=== PATIENT | male | born 1960 | race Caucasian/White ===

== ENCOUNTER 2019-12-13 16:24 | Emergency (ER) | payer MEDICARE ==
[2019-12-14 12:27] LABS: HEMATOCRIT 38 % (40-54); HEMOGLOBIN 12.8 G/DL (13.3-17.7); MEAN CORPUSCULAR HEMOGLOBIN 29 PG (25-34); MEAN CORPUSCULAR HGB CONC 33 G/DL (32-36); MEAN CORPUSCULAR VOLUME 87 FL (80-99); MEAN PLATELET VOLUME 8.8 FL (7.4-10.4); PLATELET COUNT 467 10^3/uL (130-400); RED CELL DISTRIBUTION WIDTH 12.8 % (10.0-14.5); WHITE BLOOD COUNT 11.8 10^3/uL (4.3-11.0)
[2019-12-14 12:28] LABS: BASOPHILS % (AUTO) 0 % (0-10); EOSINOPHILS % (AUTO) 1 % (0-10); LYMPHOCYTES # (AUTO) 1.9 X 10^3 (1.0-4.0); LYMPHOCYTES % (AUTO) 16 % (12-44); MONOCYTES # (AUTO) 0.9 X 10^3 (0.0-1.0); MONOCYTES % (AUTO) 8 % (0-12); NEUTROPHILS # (AUTO) 8.8 X 10^3 (1.8-7.8); NEUTROPHILS % (AUTO) 74 % (42-75)
[2019-12-14 12:29] LABS: BUN/CREATININE RATIO 13; CALCIUM 9.3 MG/DL (8.5-10.1); CARBON DIOXIDE 25 MMOL/L (21-32); CHLORIDE 100 MMOL/L (98-107); CREATININE SERUM 0.64 MG/DL (0.60-1.30); EOSINOPHILS # (AUTO) 0.2 10^3/uL (0.0-0.3); GFR ESTIMATED > 60; GLUCOSE 110 MG/DL (70-105); POTASSIUM 4.3 MMOL/L (3.6-5.0); SODIUM 137 MMOL/L (135-145)
== END 2019-12-13 17:30 | disposition home or self-care (01) ==
LOC: ER FS 16:25
DX: L03.115 Cellulitis of right lower limb (principal); I89.0 Lymphedema, not elsewhere classified
CPT/HCPCS: 36415; 80048; 85025

== ENCOUNTER 2021-08-19 17:43 | Emergency (ER) | payer MEDICARE ==
[~2021-08-19] VITALS: Ht 175 cm; Wt 171.0 kg
[2021-08-19 17:56] LABS: BASOPHILS # (AUTO) 0.1 10^3/uL (0.0-0.1); BASOPHILS % (AUTO) 1 % (0-10); EOSINOPHILS # (AUTO) 0.1 10^3/uL (0.0-0.3); EOSINOPHILS % (AUTO) 1 % (0-10); HEMATOCRIT 43 % (40-54); HEMOGLOBIN 13.9 g/dL (13.3-17.7); LYMPHOCYTES # (AUTO) 1.6 10^3/uL (1.0-4.0); LYMPHOCYTES % (AUTO) 19 % (12-44); MEAN CORPUSCULAR HEMOGLOBIN 29 pg (25-34); MEAN CORPUSCULAR HGB CONC 33 g/dL (32-36); MEAN CORPUSCULAR VOLUME 89 fL (80-99); MEAN PLATELET VOLUME 9.6 fL (9.0-12.2); MONOCYTES # (AUTO) 0.7 10^3/uL (0.0-1.0); MONOCYTES % (AUTO) 8 % (0-12); NEUTROPHILS # (AUTO) 5.9 10^3/uL (1.8-7.8); NEUTROPHILS % (AUTO) 71 % (42-75); PLATELET COUNT 257 10^3/uL (130-400); WHITE BLOOD COUNT 8.3 10^3/uL (4.3-11.0)
[2021-08-19 18:06] LABS: INR 1.1 (0.8-1.4); PROTHROMBIN TIME PATIENT 14.8 SEC (12.2-14.7)
--- NOTE | 2021-08-19 18:11 | Diagnostic Imaging Report ---
INDICATION: Shortness of breath. TIME OF EXAM: 5:57 p.m. COMPARISON: No prior studies are available for comparison. FINDINGS: Heart is enlarged. There is some infiltrate or atelectasis in the right base. Otherwise, the lungs are clear. No effusion or pneumothorax is seen. IMPRESSION: Cardiomegaly with right basilar infiltrate or atelectasis. Dictated by: Dictated on workstation # [id number]
[2021-08-19 18:16] LABS: BILIRUBIN,TOTAL 1.1 MG/DL (0.1-1.0); CALCIUM 9.1 MG/DL (8.5-10.1); CREATININE SERUM 0.75 MG/DL (0.60-1.30)
[2021-08-19 18:17] LABS: ALBUMIN 3.5 GM/DL (3.2-4.5); TOTAL PROTEIN 6.2 GM/DL (6.4-8.2)
[2021-08-19] MEDS ORDERED: ASPIRIN 81 MG CHEW (CHILDREN'S ASA) PO ONE (18:30)
[2021-08-19] MEDS ORDERED: FUROSEMIDE 40 MG/4 ML INJ (LASIX) IVP ONE (18:30)
[2021-08-19] MEDS ORDERED: DOXYCYCLINE 100 MG (VIBRAMYCIN) TABLET PO STA (19:07)
--- NOTE | 2021-08-19 19:11 | ED Respiratory ---
General Chief Complaint: Respiratory Problems Stated Complaint: SOB Nursing Triage Note: PT RAN OUT OF HIS LASIX OVER 2 WEEKS AGO AND HAS INCREASED SOB AND IS UNABLE TO LAY FLAT. Source: patient Exam Limitations: no limitations History of Present Illness Date Seen by Provider: Aug 19, 2021 Time Seen by Provider: 17:45 Initial Comments 61-year-old male with past medical history of heart failure coming in due to increasing shortness of breath and difficulty laying flat. He ran out of his Lasix over 2 weeks ago because he does not have any money to fill the prescr iption. There is a prescription waiting at [facility] he says. Has had a mild nonproductive cough. No fever or significant chest pain. Otherwise denying any other acute complaints. He is gained roughly 10 pounds Allergies and Home Medications Allergies Coded Allergies: No Known Drug Allergies (Unverified , 08/19/21) Patient Home Medication List Home Medication List Reviewed: Yes Review of Systems Review of Systems Constitutional: No chills, No fever EENTM: No blurred vision Respiratory: orthopnea, short of breath Cardiovascular: no symptoms reported Gastrointestinal: no symptoms reported Genitourinary: no symptoms reported Musculoskeletal: no symptoms reported Skin: no symptoms reported Psychiatric/Neurological: No Symptoms Reported Hematologic/Lymphatic: No Symptoms Reported Immunological/Allergic: no symptoms reported All Other Systems Reviewed Negative Unless Noted: Yes Past Meamdnp-Mhxynu-Dlaloo Hx Patient Social History Tobacco Use?: Yes Tobacco type used: Cigarettes Smoking Status: Former Smoker Substance use?: No Alcohol Use?: No Pt feels they are or have been: No Immunizations Up To Date First/Initial COVID19 Vaccinat: 2020 Second COVID19 Vaccination Franky: 2020 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 oz. kg; 55.00 BMI Method: General Appearance: WD/WN, no apparent distress Eyes: Bilateral Eye Normal Inspection HEENT: PERRL/EOMI, normal ENT inspection, pharynx normal Neck: non-tender, full range of motion, supple, normal inspection Respiratory: chest non-tender, no respiratory distress, no accessory muscle use, crackles Cardiovascular: regular rate, rhythm, no murmur Gastrointestinal: normal bowel sounds, non tender, soft; No distended, No guarding, No rebound Extremities: normal range of motion, non-tender, normal inspection, no pedal edema, no calf tenderness, normal capillary refill, pedal edema Neurologic/Psychiatric: no motor/sensory deficits, alert, normal mood/affect Skin: normal color, warm/dry Lymphatic: no adenopathy Progress/Results/Core Measures Suspected Sepsis SIRS Temperature: Pulse: Respiratory Rate: Laboratory Tests 08/19/21 17:50: White Blood Count 8.3 Blood Pressure / Mean: Laboratory Tests 08/19/21 17:50: Creatinine 0.75, INR Comment 1.1, Platelet Count 257, Total Bilirubin 1.1H Results/Orders Lab Results Laboratory Tests Test 08/19/21 17:50 Range/Units White Blood Count 8.3 4.3-11.0 10^3/uL Red Blood Count 4.80 4.30-5.52 10^6/uL Hemoglobin 13.9 13.3-17.7 g/dL Hematocrit 43 40-54 % Mean Corpuscular Volume 89 80-99 fL Mean Corpuscular Hemoglobin 29 25-34 pg Mean Corpuscular Hemoglobin Concent 33 32-36 g/dL Red Cell Distribution Width 15.3 H 10.0-14.5 % Platelet Count 257 130-400 10^3/uL Mean Platelet Volume 9.6 9.0-12.2 fL Immature Granulocyte % (Auto) 0 % Neutrophils (%) (Auto) 71 42-75 % Lymphocytes (%) (Auto) 19 12-44 % Monocytes (%) (Auto) 8 0-12 % Eosinophils (%) (Auto) 1 0-10 % Basophils (%) (Auto) 1 0-10 % Neutrophils # (Auto) 5.9 1.8-7.8 10^3/uL Lymphocytes # (Auto) 1.6 1.0-4.0 10^3/uL Monocytes # (Auto) 0.7 0.0-1.0 10^3/uL Eosinophils # (Auto) 0.1 0.0-0.3 10^3/uL Basophils # (Auto) 0.1 0.0-0.1 10^3/uL Immature Granulocyte # (Auto) 0.0 0.0-0.1 10^3/uL Prothrombin Time 14.8 H 12.2-14.7 SEC INR Comment 1.1 0.8-1.4 Activated Partial Thromboplast Time 43 H 24-35 SEC Sodium Level 141 135-145 MMOL/L Potassium Level 4.0 3.6-5.0 MMOL/L Chloride Level 106 98-107 MMOL/L Carbon Dioxide Level 24 21-32 MMOL/L Anion Gap 11 5-14 MMOL/L Blood Urea Nitrogen 15 7-18 MG/DL Creatinine 0.75 0.60-1.30 MG/DL Estimat Glomerular Filtration Rate 101 BUN/Creatinine Ratio 20 Glucose Level 107 H 70-105 MG/DL Calcium Level 9.1 8.5-10.1 MG/DL Corrected Calcium 9.5 8.5-10.1 MG/DL Magnesium Level 2.0 1.6-2.4 MG/DL Total Bilirubin 1.1 H 0.1-1.0 MG/DL Aspartate Amino Transf (AST/SGOT) 20 5-34 U/L Alanine Aminotransferase (ALT/SGPT) 25 0-55 U/L Alkaline Phosphatase 107 40-136 U/L Troponin I < 0.30 <0.30 NG/ML Pro-B-Type Natriuretic Peptide 2858.0 H <75.0 PG/ML Total Protein 6.2 L 6.4-8.2 GM/DL Albumin 3.5 3.2-4.5 GM/DL My Orders Orders - JUSTICE QUINTANILLA MD Cbc With Automated Diff (08/19/21 17:46) Magnesium (08/19/21 17:46) Chest 1 View Ap/Pa Only (08/19/21 17:46) Ekg Tracing (08/19/21 17:46) Comprehensive Metabolic Panel (08/19/21 17:46) Protime With Inr (08/19/21 17:46) Partial Thromboplastin Time (08/19/21 17:46) O2 (08/19/21 17:46) Monitor-Rhythm Ecg Trace Only (08/19/21 17:46) Ed Iv/Invasive Line Start (08/19/21 17:46) Troponin I Fs (08/19/21 17:46) Probnp Fs (08/19/21 17:46) Furosemide Injection (Lasix Injection) (08/19/21 18:30) Aspirin Chewable Tablet (Baby Aspirin Ch (08/19/21 18:30) Doxycycline Hyclate Tablet (Vibramycin T (08/19/21 19:07) Medications Given in ED Current Medications Medications Dose Ordered Sig/Nia Route Start Time Stop Time Status Last Admin Dose Admin Aspirin 324 mg ONCE ONCE PO 08/19/21 18:30 08/19/21 18:31 DC 08/19/21 18:29 324 MG Furosemide 100 mg ONCE ONCE IVP 08/19/21 18:30 08/19/21 18:31 DC 08/19/21 18:29 100 MG Vital Signs/I&O Capillary Refill : Progress Note : Progress Note 61-year-old male with above history coming in due to weight gain and increasing shortness of breath in the setting of known heart failure and not taking his Lasix for 2 weeks. ABCs were intact and vitals were stable on presentation. Physical exam with what appears to be a volume overloaded male with crackles in his lung exam and lower extremity edema. He was given 100 mg of IV Lasix with good response and significant improvement in his symptoms. Chest x-ray with p ulmonary edema and possible right lower lobe infiltrate. Given doxycycline as well and full dose aspirin. BNP elevated but troponin is normal. Labs otherwise unremarkable. The patient feels well and wants to go home. I believe he stable for discharge with outpatient follow-up. He was sent home with strict return precautions. He says he has money tomorrow to fill the prescriptions. ECG Initial ECG Impression Date: Aug 19, 2021 Initial ECG Impression Time: 17:50 Initial ECG Rate: 92 Initial ECG Rhythm: Normal Sinus Comment Narrow QRS, left axis deviation, no significant ST changes, T wave flattening in the high lateral leads Diagnostic Imaging Diagonstic Imaging: Xray (chest) Comments [facility], [place] NAME: NARCISA LOCO [facility] REC#: [id number] PT STATUS: REG ER : 1960 PHYSICIAN: JUSTICE QUINTANILLA MD ADMIT DATE: 08/19/21/ER FS Signed Date of Exam:08/19/21 CHEST 1 VIEW AP/PA ONLY INDICATION: Shortness of breath. TIME OF EXAM: 5:57 p.m. COMPARISON: No prior studies are available for comparison. FINDINGS: Heart is enlarged. There is some infiltrate or atelectasis in the right base. Otherwise, the lungs are clear. No effusion or pneumothorax is seen. IMPRESSION: Cardiomegaly with right basilar infiltrate or atelectasis. Dictated by: Dictated on workstation # [id number] Dict: 08/19/[id number] Trans: 08/19/211836 [id number] Interpreted by: THONG PARISH MD Electronically signed by: THONG PARISH MD 08/19/211836 Departure Impression Primary Impression: Volume overload Qualified Codes: E87.70 - Fluid overload, unspecified Additional Impression: Pneumonia Qualified Codes: J18.9 - Pneumonia, unspecified organism Disposition: HOME, SELF-CARE Condition: Improved Departure-Patient Inst. Decision time for Depature: 19:16 Referrals: RUDI SHEEHAN MD (PCP/Family) Primary Care Physician Patient Instructions: Heart Failure ED, Pneumonia, Adult ED Add. Discharge Instructions: You do have too much fluid on your lungs and potentially developing pneumonia on the right lower part of your lung. We will start you on an antibiotic for the next week. 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 I do want you to schedule an appointment with your cardi ologist within the next couple weeks. Scripts Doxycycline Hyclate (Doxycycline Hyclate) 100 Mg Tablet 100 MG PO BID for 7 Days, #14 TAB Prov: JUSTICE QUINTANILLA MD 08/19/21 Work/School Note: Work Release Form Date Seen in the Emergency Department: Aug 19, 2021 Return to Work: Aug 21, 2021 Restrictions: No Restrictions JUSTICE QUINTANILLA MD Aug 19, 2021 19:11
[2021-08-19] MEDS ORDERED: DOXY100T2 PO (19:17)
[2021-08-19 19:20] VITALS: BP 193/114
== END 2021-08-19 19:20 | disposition home or self-care (01) ==
LOC: EDUNIT# 17:43 → ER FS 17:44
DX: E87.70 Fluid overload, unspecified (principal); J18.9 Pneumonia, unspecified organism; Z87.891 Personal history of nicotine dependence
CPT/HCPCS: 36415; 71045; 80053; 83735; 83880; 84484; 85025; 85610; 85730; 93005; 93041

== ENCOUNTER 2021-11-08 17:14 | Inpatient (IN) | payer MEDICARE ==
[~2021-11-08] VITALS: Ht 175.3 cm; Wt 157.2 kg
[~2021-11-08 17:14] MED LIST: DOXY100T2 PO; RT-ALBUTEROL/IPRATROPIUM 3 ML (DUONEB) VIAL INH PRN
[2021-11-08] MEDS ORDERED: FUROSEMIDE 40 MG/4 ML INJ (LASIX) IVP ONE (17:30)
[2021-11-08] MEDS ORDERED: ASPIRIN 81 MG CHEW (CHILDREN'S ASA) PO ONE (17:30)
[2021-11-08 17:31] LABS: BASOPHILS % (AUTO) 0 % (0-10); EOSINOPHILS % (AUTO) 0 % (0-10); HEMATOCRIT 43 % (40-54); HEMOGLOBIN 14.1 g/dL (13.3-17.7); LYMPHOCYTES # (AUTO) 1.4 10^3/uL (1.0-4.0); LYMPHOCYTES % (AUTO) 18 % (12-44); MEAN CORPUSCULAR HEMOGLOBIN 30 pg (25-34); MEAN CORPUSCULAR HGB CONC 33 g/dL (32-36); MEAN CORPUSCULAR VOLUME 91 fL (80-99); MEAN PLATELET VOLUME 9.5 fL (9.0-12.2); MONOCYTES # (AUTO) 0.4 10^3/uL (0.0-1.0); MONOCYTES % (AUTO) 5 % (0-12); NEUTROPHILS % (AUTO) 76 % (42-75); PLATELET COUNT 283 10^3/uL (130-400); WHITE BLOOD COUNT 7.9 10^3/uL (4.3-11.0)
--- NOTE | 2021-11-08 17:33 | ED Cardiac General ---
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 He says over the past 6 months he went from being less than 300 pounds to over 350 pounds. Last month he was around 360 pounds which was his all-time high. His primary care physician increase his Lasix from 40 mg to 80 mg p.o. daily and he lost 10 pounds, he says this week he weighed in around 350 pounds. He says he has had decreased effectiveness, he is not urinating as much as he should be with it, and feels like he is gaining more water weight again. He feels short of breath, is unable to lay flat at all. Denies any chest pain, does not have any stents in his heart and never has had any type of cardiac surgery. Denies any history of blood clots in his legs or lungs, no recent surgery, no hemoptysis, no asymmetric leg swelling or redness with pain. Does not take any blood thinners. He is otherwise denying any other acute complaints Allergies and Home Medications Allergies Coded Allergies: No Known Drug Allergies (Unverified , 08/19/21) Patient Home Medication List Home Medication List Reviewed: Yes Doxycycline Hyclate (Doxycycline Hyclate) 100 Mg Tablet, 100 MG PO BID Prescribed by: JUSTICE QUINTANILLA on 08/19/211916 Review of Systems Review of Systems Constitutional: No fever EENTM: No Blurred Vision Respiratory: Cough, Shortness of Air Cardiovascular: Denies Chest Pain Gastrointestinal: Abdominal Pain; Denies Diarrhea; Nausea, Vomiting Genitourinary: No Symptoms Reported Musculoskeletal: no symptoms reported Skin: no symptoms reported Psychiatric/Neurological: No Symptoms Reported Endocrine: No Symptoms Reported Hematologic/Lymphatic: No Symptoms Reported All Other Systems Reviewed Negative Unless Noted: Yes Past Qygvvxb-Xomagc-Vcvenk Hx Patient Social History Tobacco Use?: No Smoking Status: Never a Smoker Smokeless Tobacco Frequency: Never a User Use of E-Cig and/or Vaping dev: No Use of E-Cig and/or Vaping Yossi: Never a User Substance use?: No Alcohol Use?: No Pt feels they are or have been: No Immunizations Up To Date First/Initial COVID19 Vaccinat: 2020 Second COVID19 Vaccination Franky: 2020 COVID19 Vaccine Director Telehealth: [facility] Past Medical History Surgery/Hospitalization HX: CHF, COPD Surgeries: Yes (circumcision) Physical Exam Vital Signs Vital Signs - First Documented 11/08/21 17:14 Temp 35.8 Pulse 102 Resp 16 B/P (MAP) 132/85 (101) O2 Delivery Room Air Capillary Refill : Height, Weight, BMI Height: '" Weight: lbs. oz. kg; 55.00 BMI Method: General Appearance: No Apparent Distress, Obese HEENT: PERRL/EOMI, Normal ENT Inspection, Pharynx Normal Neck: Full Range of Motion, Normal Inspection, Non Tender, Supple Respiratory: Chest Non Tender, No Accessory Muscle Use, No Respiratory Distress, Crackles Cardiovascular: Regular Rate, Rhythm, Normal Peripheral Pulses, Other (lower extremity edema) Gastrointestinal: Normal Bowel Sounds, Soft, Tenderness, Other (anasarca) Extremity: Normal Capillary Refill, Normal Range of Motion, Non Tender, No Calf Tenderness, Pedal Edema Neurologic/Psychiatric: Alert, No Motor/Sensory Deficits, Normal Mood/Affect Skin: Normal Color, Warm/Dry Lymphatic: No Adenopathy Progress/Results/Core Measures Results/Orders Lab Results Laboratory Tests Test 11/08/21 17:28 Range/Units White Blood Count 7.9 4.3-11.0 10^3/uL Red Blood Count 4.76 4.30-5.52 10^6/uL Hemoglobin 14.1 13.3-17.7 g/dL Hematocrit 43 40-54 % Mean Corpuscular Volume 91 80-99 fL Mean Corpuscular Hemoglobin 30 25-34 pg Mean Corpuscular Hemoglobin Concent 33 32-36 g/dL Red Cell Distribution Width 17.7 H 10.0-14.5 % Platelet Count 283 130-400 10^3/uL Mean Platelet Volume 9.5 9.0-12.2 fL Immature Granulocyte % (Auto) 0 % Neutrophils (%) (Auto) 76 H 42-75 % Lymphocytes (%) (Auto) 18 12-44 % Monocytes (%) (Auto) 5 0-12 % Eosinophils (%) (Auto) 0 0-10 % Basophils (%) (Auto) 0 0-10 % Neutrophils # (Auto) 6.0 1.8-7.8 10^3/uL Lymphocytes # (Auto) 1.4 1.0-4.0 10^3/uL Monocytes # (Auto) 0.4 0.0-1.0 10^3/uL Eosinophils # (Auto) 0.0 0.0-0.3 10^3/uL Basophils # (Auto) 0.0 0.0-0.1 10^3/uL Immature Granulocyte # (Auto) 0.0 0.0-0.1 10^3/uL Prothrombin Time 17.1 H 12.2-14.7 SEC INR Comment 1.4 0.8-1.4 Activated Partial Thromboplast Time 35 24-35 SEC Sodium Level 139 135-145 MMOL/L Potassium Level 3.5 L 3.6-5.0 MMOL/L Chloride Level 100 98-107 MMOL/L Carbon Dioxide Level 26 21-32 MMOL/L Anion Gap 13 5-14 MMOL/L Blood Urea Nitrogen 28 H 7-18 MG/DL Creatinine 1.22 0.60-1.30 MG/DL Estimat Glomerular Filtration Rate 67 BUN/Creatinine Ratio 23 Glucose Level 157 H 70-105 MG/DL Calcium Level 8.6 8.5-10.1 MG/DL Corrected Calcium 9.2 8.5-10.1 MG/DL Magnesium Level 1.6 1.6-2.4 MG/DL Total Bilirubin 2.1 H 0.1-1.0 MG/DL Aspartate Amino Transf (AST/SGOT) 54 H 5-34 U/L Alanine Aminotransferase (ALT/SGPT) 68 H 0-55 U/L Alkaline Phosphatase 276 H 40-136 U/L Troponin I < 0.30 <0.30 NG/ML Pro-B-Type Natriuretic Peptide 5700.0 H <125.0 PG/ML Total Protein 6.2 L 6.4-8.2 GM/DL Albumin 3.3 3.2-4.5 GM/DL My Orders Orders - JUSTICE QUINTANILLA MD Cbc With Automated Diff (11/08/21 17:25) Magnesium (11/08/21 17:25) Ekg Tracing (11/08/21 17:25) Comprehensive Metabolic Panel (11/08/21 17:25) Protime With Inr (11/08/21 17:25) Partial Thromboplastin Time (11/08/21 17:25) O2 (11/08/21 17:25) Monitor-Rhythm Ecg Trace Only (11/08/21 17:25) Aspirin Chewable Tablet (Baby Aspirin Ch (11/08/21 17:30) Ed Iv/Invasive Line Start (11/08/21 17:25) Troponin I Fs (11/08/21 17:25) Probnp Fs (11/08/21 17:25) Ct Abd/Pelv W (Appendicitis) (11/08/21 17:25) Chest Pa/Lat (2 View) (11/08/21 17:25) Furosemide Injection (Lasix Injection) (11/08/21 17:30) Iohexol Injection (Omnipaque 300 Mg/Ml 1 (11/08/21 18:00) Sodium Chloride Flush (Catheter Flush Sy (11/08/21 18:00) Ns (Ivpb) (Sodium Chloride 0.9% Ivpb Bag (11/08/21 18:00) Received Contrast (Hold Metformin- Contr (11/08/21 18:00) Potassium Chloride (Tablet) (K Dur Table (11/08/21 18:45) Medications Given in ED Current Medications Medications Dose Ordered Sig/Nia Route Start Time Stop Time Status Last Admin Dose Admin Aspirin 243 mg ONCE ONCE PO 11/08/21 17:30 11/08/21 17:31 DC 11/08/21 18:21 243 MG Furosemide 80 mg ONCE ONCE IVP 11/08/21 17:30 11/08/21 17:31 DC 11/08/21 18:21 80 MG Iohexol 125 ml ONCE ONCE IV 11/08/21 18:00 11/08/21 18:01 DC 11/08/21 18:10 125 ML Sodium Chloride 10 ml NEEDED PRN IV 11/08/21 18:00 11/08/21 18:10 10 ML Sodium Chloride 100 ml ONCE ONCE IV 11/08/21 18:00 11/08/21 18:01 DC 11/08/21 18:10 100 ML Vital Signs/I&O 11/08/21 17:14 Temp 35.8 Pulse 102 Resp 16 B/P (MAP) 132/85 (101) O2 Delivery Room Air Progress Progress Note : Progress Note 61-year-old male with above history coming in due to shortness of breath, weight gain, and feeling like his Lasix is not responding as much as it has been. ABCs were intact and vitals were stable on presentation other than he was tachycardic the rate of 120. An IV was placed and he was given 80 mg of Lasix as well as 40 mg of p.o. potassium. Physical exam with crackles and silvana anasarca. Chest x- ray with no significant abnormality. CT abdomen and pelvis with anasarca. Given the patient's symptoms, I am concerned he is very volume overloaded with silvana anasarca and will need IV Lasix. I contacted Dr. Pang who admit the patient under inpatient status to the stepdown unit. I then contacted Dr. Arango in consultation. The patient is adamant that he goes private vehicle. He says if he goes via ambulance we will have to sedate him. Although this is not the most ideal situation, I think it is in his best interest whenever we will get him to the hospital. Initial ECG Impression Date: Nov 08, 2021 Initial ECG Impression Time: 18:26 Initial ECG Rate: 122 Initial ECG Rhythm: S.Tach Comment Narrow QRS, left axis deviation, no significant ST changes or T wave abnormalities, there is significant artifact making it difficult to fully interpret Diagnostic Imaging Diagonstic Imaging: Xray, CT (abd/pelv) Plain Films/CT/US/NM/MRI: chest Comments [facility], [place] NAME: NARCISA LOCO [facility] REC#: [id number] PT STATUS: REG ER : 1960 PHYSICIAN: JUSTICE QUINTANILLA MD ADMIT DATE: 11/08/21/ER FS Signed Date of Exam:11/08/21 CHEST PA/LAT (2 VIEW) EXAMINATION: Chest 2 view. HISTORY: Shortness of breath. Weight gain. History of heart failure. COMPARISON: 08/19/2021. FINDINGS: The lung volumes are hyperinflated. No focal consolidation is seen. No large pleural effusion or pneumothorax is seen. The cardiomediastinal silhouette is enlarged. No acute osseous abnormality is seen. IMPRESSION: 1. Cardiomegaly. No overt pulmonary edema. 2. Hyperinflated lung volumes, which can be seen with COPD. Dictated by: Dictated on workstation # [id number] Dict: 11/08/211742 Trans: 11/08/211746 [facility] [id number] Interpreted by: KENDY SOLIZ DO Electronically signed by: KENDY SOLIZ DO 11/08/211746 NAME: NARCISA LOCO [facility] REC#: [id number] PT STATUS: REG ER : 1960 PHYSICIAN: JUSTICE QUINTANILLA MD ADMIT DATE: 11/08/21/ER FS Draft Date of Exam:11/08/21 CT ABD/PELV W (APPENDICITIS) EXAMINATION: CT abdomen and pelvis with intravenous contrast. TECHNIQUE: Multiple contiguous axial images were obtained through the abdomen and pelvis after the uneventful administration of intravenous contrast. All CT scans use one or more of the following dose optimizing techniques: automated exposure control, MA and/or KvP adjustment based on patient size and exam type or iterative reconstruction. HISTORY: Mid abdominal pain. Vomiting. Fluid overload. COMPARISON: None available. FINDINGS: The heart is enlarged. Small right-sided pleural effusion is seen with right basilar atelectasis. There is hepatic steatosis. The liver has a micronodular contour. No focal hepatic lesion is seen. The gallbladder is nondistended with gallbladder wall thickening. There is a small amount of free fluid in the abdomen and pelvis. The spleen, pancreas, adrenal glands, and kidneys have a normal appearance. There is no pathologically enlarged mesenteric or retroperitoneal adenopathy. The bowel loops are nondilated. The appendix is visualized in the right lower quadrant and has a normal appearance. There is no free air. No acute osseous abnormalities. There is calcified aortic and iliac atherosclerotic plaque with mild aneurysmal dilation of the infrarenal abdominal aorta measuring 3.2 cm in max diameter. There is also aneurysmal dilation of the right common iliac artery measuring 2.1 cm. Ureters and bladder are grossly normal. Anasarca is noted. There is no free air, loculated collection or adenopathy in the pelvis. IMPRESSION: 1. Hepatic steatosis with possible underlying cirrhosis. Small volume of ascites is seen in the abdomen and pelvis. 2. Aneurysmal dilation of the infrarenal abdominal aorta and common iliac artery. 3. Cardiomegaly with small right-sided pleural effusion and right basilar atelectasis. 4. Anasarca. Dictated on workstation # [id number] Dict: 11/08/211815 Trans: 11/08/211821 [facility] [id number] Interpreted by: KENDY SOLIZ DO Electronically signed by: Departure Impression Primary Impression: Anasarca Additional Impressions: CHF exacerbation Qualified Codes: I50.23 - Acute on chronic systolic (congestive) heart failure Orthopnea Disposition: 30 STILL A PATIENT Condition: Stable Admissions Decision to Admit Reason: Admit from ER (General) Decision to Admit/Date: Nov 08, 2021 Time/Decision to Admit Time: 18:40 Transfer Method of Transfer: Private Vehicle Departure-Patient Inst. Referrals: RUDI SHEEHAN MD (PCP/Family) Primary Care Physician JUSTICE QUINTANILLA MD Nov 08, 2021 17:33
[2021-11-08 17:38] LABS: INR 1.4 (0.8-1.4); PROTHROMBIN TIME PATIENT 17.1 SEC (12.2-14.7)
--- NOTE | 2021-11-08 17:46 | Diagnostic Imaging Report ---
EXAMINATION: Chest 2 view. HISTORY: Shortness of breath. Weight gain. History of heart failure. COMPARISON: 08/19/2021. FINDINGS: The lung volumes are hyperinflated. No focal consolidation is seen. No large pleural effusion or pneumothorax is seen. The cardiomediastinal silhouette is enlarged. No acute osseous abnormality is seen. IMPRESSION: 1. Cardiomegaly. No overt pulmonary edema. 2. Hyperinflated lung volumes, which can be seen with COPD. Dictated by: Dictated on workstation # [id number]
[2021-11-08 17:50] LABS: ALBUMIN 3.3 GM/DL (3.2-4.5); BILIRUBIN,TOTAL 2.1 MG/DL (0.1-1.0); CALCIUM 8.6 MG/DL (8.5-10.1); CREATININE SERUM 1.22 MG/DL (0.60-1.30); MAGNESIUM 1.6 MG/DL (1.6-2.4); POTASSIUM 3.5 MMOL/L (3.6-5.0); TOTAL PROTEIN 6.2 GM/DL (6.4-8.2)
[2021-11-08] MEDS ORDERED: IOHEXOL 300 MG/ML 100 ML (OMNIPAQUE 300) VIAL IV ONE (18:00)
[2021-11-08] MEDS ORDERED: CATHETER FLUSH 10 ML SYR IV PRN (18:00)
[2021-11-08] MEDS ORDERED: HOLD METFORMIN - RECEIVED CONTRAST 20 ML VIAL IV SCH (18:00)
[2021-11-08] MEDS ORDERED: NS 100 ML (IVPB) BAG IV ONE (18:00)
--- NOTE | 2021-11-08 18:22 | Diagnostic Imaging Report ---
EXAMINATION: CT abdomen and pelvis with intravenous contrast. TECHNIQUE: Multiple contiguous axial images were obtained through the abdomen and pelvis after the uneventful administration of intravenous contrast. All CT scans use one or more of the following dose optimizing techniques: automated exposure control, MA and/or KvP adjustment based on patient size and exam type or iterative reconstruction. HISTORY: Mid abdominal pain. Vomiting. Fluid overload. COMPARISON: None available. FINDINGS: The heart is enlarged. Small right-sided pleural effusion is seen with right basilar atelectasis. There is hepatic steatosis. The liver has a micronodular contour. No focal hepatic lesion is seen. The gallbladder is nondistended with gallbladder wall thickening. There is a small amount of free fluid in the abdomen and pelvis. The spleen, pancreas, adrenal glands, and kidneys have a normal appearance. There is no pathologically enlarged mesenteric or retroperitoneal adenopathy. The bowel loops are nondilated. The appendix is visualized in the right lower quadrant and has a normal appearance. There is no free air. No acute osseous abnormalities. There is calcified aortic and iliac atherosclerotic plaque with mild aneurysmal dilation of the infrarenal abdominal aorta measuring 3.2 cm in max diameter. There is also aneurysmal dilation of the right common iliac artery measuring 2.1 cm. Ureters and bladder are grossly normal. Anasarca is noted. There is no free air, loculated collection or adenopathy in the pelvis. IMPRESSION: 1. Hepatic steatosis with possible underlying cirrhosis. Small volume of ascites is seen in the abdomen and pelvis. 2. Aneurysmal dilation of the infrarenal abdominal aorta and common iliac artery. 3. Cardiomegaly with small right-sided pleural effusion and right basilar atelectasis. 4. Anasarca. Dictated by: Dictated on workstation # [id number]
[2021-11-08] MEDS ORDERED: KCL 20 MEQ TAB (K-DUR) PO ONE (18:45)
[2021-11-08] MEDS ORDERED: polyethylene glycoL POWDER 17 GM (MIRALAX) PACK PO PRN (22:00)
[2021-11-08] MEDS ORDERED: morphine INJ 4 MG/ML 1 ML (VIAL/SYRINGE) IV PRN (22:00)
[2021-11-08] MEDS ORDERED: diphenhydrAMINE 50 MG/ML INJ (BENADRYL) IVP PRN (22:00)
[2021-11-08] MEDS ORDERED: ANTACID SUSP 30 ML UDC (MYLANTA) PO PRN (22:00)
[2021-11-08] MEDS ORDERED: ONDANSETRON 4 MG (ZOFRAN) ORAL DISSOLVE TAB PO PRN (22:00)
[2021-11-08] MEDS ORDERED: BISACODYL 10 MG SUPP (DULCOLAX) PR PRN (22:00)
[2021-11-08 22:32] VITALS: BP 132/85
[2021-11-08] MEDS: ENOXAPARIN 60 MG/0.6 ML (LOVENOX) SYR SC SCH (23:42)
[2021-11-08 23:52] VITALS: BP 119/84
[2021-11-08 23:54] VITALS: BP 119/84
[2021-11-09] VITALS (16 sets, daily range): BP systolic 105–143; BP diastolic 80–105
[2021-11-09 06:04] LABS: BASOPHILS % (AUTO) 0 % (0-10); EOSINOPHILS # (AUTO) 0.1 10^3/uL (0.0-0.3); EOSINOPHILS % (AUTO) 1 % (0-10); HEMATOCRIT 45 % (40-54); HEMOGLOBIN 14.6 g/dL (13.3-17.7); LYMPHOCYTES # (AUTO) 2.3 10^3/uL (1.0-4.0); LYMPHOCYTES % (AUTO) 25 % (12-44); MEAN CORPUSCULAR HEMOGLOBIN 30 pg (25-34); MEAN CORPUSCULAR HGB CONC 32 g/dL (32-36); MEAN CORPUSCULAR VOLUME 92 fL (80-99); MEAN PLATELET VOLUME 9.7 fL (9.0-12.2); MONOCYTES # (AUTO) 0.9 10^3/uL (0.0-1.0); MONOCYTES % (AUTO) 9 % (0-12); NEUTROPHILS % (AUTO) 64 % (42-75); PLATELET COUNT 274 10^3/uL (130-400); WHITE BLOOD COUNT 9.3 10^3/uL (4.3-11.0)
[2021-11-09 06:22] LABS: ALBUMIN 3.2 GM/DL (3.2-4.5)
[2021-11-09 06:23] LABS: POTASSIUM 3.3 MMOL/L (3.6-5.0)
[2021-11-09 06:24] LABS: CALCIUM 8.7 MG/DL (8.5-10.1)
[2021-11-09 06:25] LABS: TOTAL PROTEIN 6.2 GM/DL (6.4-8.2)
[2021-11-09 06:29] LABS: CREATININE SERUM 1.2 MG/DL (0.60-1.30)
[2021-11-09 06:31] LABS: MAGNESIUM 1.7 MG/DL (1.6-2.4)
--- NOTE | 2021-11-09 06:43 | History & Physical-Hospitalist ---
History of Present Illness HPI/Chief Complaint CC: Wendie HPI: This is a 61yoWM clinic patient of Dr Greer who lives at home who has a h/o recent retention of fluid which started 1 month ago. Patient has no h/o CHF but his edema was so widespread the decision was made to admit to hospital and consult Dr Arango for suspicion of CHF new onset. Lasix was given with good results. Labs reviewed. Patient experienced AF RVR after I saw him so we moved him to ICU placed on Cardizem drip without bolus and started him on Eliquis. Source: patient, RN/MD Exam Limitations: clinical condition Date Seen 11/09/21 Time Seen by a Provider: 11:30 Attending Physician Colin Greer MD PCP Admitting Physician: Briana Pang DO Attending Physician: Briana Pang DO Referring Physician Date of Admission Nov 08, 2021 at 21:47 Home Medications & Allergies Home Medications Reviewed patient Home Medication Reconciliation performed by pharmacy medication reconciliations bioinformatics research technician and/or nursing. Patients Allergies have been reviewed. Allergies Allergies Coded Allergies No Known Drug Allergies (Unverified08/19/21) Past Awuojre-Zcizry-Mlpxva Hx Patient Social History Marrital Status: single Employed/Student: unemployed Tobacco Use?: No Smoking Status: Former Smoker Smokeless Tobacco Frequency: Never a User Use of E-Cig and/or Vaping dev: No Use of E-Cig and/or Vaping Yossi: Never a User Substance use?: No Alcohol Use?: No Pt feels they are or have been: No Immunizations Up To Date First/Initial COVID19 Vaccinat: 2020 Second COVID19 Vaccination Franky: 2020 Current Status Advance Directives: No Communicates: Verbally Primary Language: Mongolian Preferred Spoken Language: Mongolian Is interpretation needed?: No Sensory deficits: Vision impairment Implanted or Applied Medical D: None Past Medical History Hypertension Review of Systems Constitutional: see HPI EENTM: no symptoms reported Respiratory: dyspnea on exertion, short of breath Cardiovascular: edema Physical Exam Physical Exam Vital Signs Vital Signs - First Documented 11/08/21 11/08/21 11/08/21 11/09/21 17:14 19:01 22:32 15:26 Temp 35.8 Pulse 102 Resp 16 B/P (MAP) 132/85 (101) Pulse Ox 97 O2 Delivery Room Air O2 Flow Rate 2.00 FiO2 21 Capillary Refill : Less Than 3 Seconds Height, Weight, BMI Height: '" Weight: lbs. oz. kg; 51.41 BMI Method: General Appearance: Anxious, Chronically ill, Mild Distress, Obese Eyes: Right Eye Normal Inspection, Right Eye PERRL HEENT: PERRL/EOMI, Normal ENT Inspection, Pharynx Normal, Moist Mucous Membranes Neck: Full Range of Motion, Normal Inspection, Non Tender Respiratory: Chest Non Tender, No Accessory Muscle Use, No Respiratory Distress, Decreased Breath Sounds, Wheezing Cardiovascular: No Edema, No Gallop, No JVD, No Murmur, Normal Peripheral Pulses, Tachycardia Gastrointestinal: Normal Bowel Sounds, No Organomegaly, No Pulsatile Mass, Non Tender, Soft Back: Normal Inspection, No CVA Tenderness, No Vertebral Tenderness Extremity: Normal Capillary Refill, Normal Inspection, Normal Range of Motion, Non Tender, No Calf Tenderness, No Pedal Edema Neurologic/Psychiatric: Alert, Oriented x3, No Motor/Sensory Deficits, Normal Mood/Affect Skin: Normal Color, Warm/Dry Lymphatic: No Adenopathy Results Results/Procedures Labs Laboratory Tests 11/08/21 17:28 11/09/21 05:15 Patient resulted labs reviewed. Assessment/Plan Admission Diagnosis Assessment: Volume overload New onset CHF New onset AF RVR Obesity Plan: IV Lasix Cardizem drip Dr Arango consult Move to ICU OAC CVA PPx Admission Status: Inpatient Order (span 2 midnights) Reason for Inpatient Admission: CHF with AF RVR Diagnosis/Problems Diagnosis/Problems (1) Atrial fibrillation with rapid ventricular response (2) Anasarca (3) CHF exacerbation Status: Acute Qualifiers: Heart failure type: systolic Qualified Codes: I50.23 - Acute on chronic systolic (congestive) heart failure (4) Volume overload Status: Acute BRIANA PANG DO Nov 09, 2021 06:43
[2021-11-09] MEDS: FUROSEMIDE 40 MG/4 ML INJ (LASIX) IVP SCH ×2 (06:52→16:45)
[2021-11-09] MEDS: RT-ALBUTEROL/IPRATROPIUM 3 ML (DUONEB) VIAL INH SCH ×4 (07:58→18:39)
[2021-11-09] MEDS: DOCUSATE SODIUM 100 MG (COLACE) CAP PO SCH ×2 (09:22→20:04)
[2021-11-09] MEDS: ENOXAPARIN 60 MG/0.6 ML (LOVENOX) SYR SC SCH (09:22)
[2021-11-09] MEDS ORDERED: APIXABAN 5 MG (ELIQUIS) TABLET PO ONE (13:45)
[2021-11-09] MEDS: dilTIAZem DRIP PRE-MIX 125 ML IV SCH ×2 (13:48→22:47)
--- NOTE | 2021-11-09 14:29 | Consultation-Cardiology ---
HPI-Cardiology Cardiology Consultation: Date of Consultation 11/09/21 Time Seen by a Provider: 13:40 Date of Admission Attending Physician Colin Greer MD Admitting Physician Admitting Physician: Briana Pang DO Attending Physician: Briana Pang DO Consulting Physician ADONIS JAIMES MD, MA, FACP, FACC, FSCAI, CCDS HPI: Chief Complaint: Shortness of breath and weight gain 61 yo man with a few months of progressive shortness of breath, weight gain, abdominal swelling, and leg swelling. Diagnosed with CHF at time of presentation to [facility] on 11/08/[address] Pang at this hosp. Denies cp or palp or syncope. Reports a h/o RHONDA but noncompliant with CPAP. Review of Systems-Cardiology Review of Systems Constitutional: malaise, tiredness, weight gain Eyes: No vision change Ears/Nose/Throat: No ear discharge, No nasal drainage, No recent hearing loss Respiratory: As described under HPI Cardiovascular: As described under HPI Gastrointestinal: No diarrhea, No nausea, No vomiting Genitourinary: No dysuria, No hematuria Musculoskeletal: back pain (chronic) Skin: No rash, No ulcerations Psychiatric/Neurological: No seizure, No focal weakness, No syncope Hematologic: No bleeding abnormalities All Other Systems Reviewed Negative Unless Noted: Yes BTU-Sxobco-Ffygxl Hx Patient Social History Smoking Status: Former Smoker Have you traveled recently?: No Alcohol Use?: No Pt feels they are or have been: No Past Medical History PMH As described under Assessment. Family Medical History Family Medical History: Does not report fam h/o early CAD or SCD Allergies and Home Medications Allergies Coded Allergies: No Known Drug Allergies (Unverified , 08/19/21) Patient Home Medication List Home Medication List Reviewed: Yes Doxycycline Hyclate (Doxycycline Hyclate) 100 Mg Tablet, 100 MG PO BID Prescribed by: JUSTICE QUINTANILLA on 08/19/211916 Physical Exam-Cardiology Physical Exam Vital Signs/I&O 11/09/21 11/09/21 11/09/21 11/09/21 03:58 04:06 04:36 07:00 Temp 35.9 Pulse 120 118 Resp 18 B/P (MAP) 128/87 (101) Pulse Ox 97 95 O2 Delivery Room Air 11/09/21 11/09/21 11/09/21 11/09/21 08:00 08:00 08:02 11:30 Temp 36.8 36.1 Pulse 135 121 Resp 16 16 B/P (MAP) 120/94 (103) 127/85 (99) Pulse Ox 95 96 95 O2 Delivery Room Air Room Air Room Air 11/09/21 11/09/21 12:00 13:00 Pulse 126 O2 Delivery Room Air Capillary Refill : Less Than 3 Seconds Constitutional: AAO x 3, well-developed, well-nourished HEENT: PERRL, other (edentulous jaws), EOMI, hearing is well preserved Neck: carotid pulses are 2 + bilaterally, with good upstrokes Respiratory: No accessory muscle use; other (fair air entry, prolonged exp, coarse and fine crackles in the bases) Cardiovascular: irregularly irregular, tachycardia, systolic murmur (soft HAL at card base) Gastrointestinal: No tender; soft, distended; No guarding, No rebound; audible bowel sounds Extremities: swelling (mild to mod, pitting edema of both legs); No clubbing, No cyanosis Neurologic/Psychiatric: other (moves all limbs) Skin: warm/dry; No rash on exposed areas, No ulcerations on exposed areas Data Review Labs Laboratory Tests 11/08/21 17:28: White Blood Count 7.9, Red Blood Count 4.76, Hemoglobin 14.1, Hematocrit 43, Mean Corpuscular Volume 91, Mean Corpuscular Hemoglobin 30, Mean Corpuscular Hemoglobin Concent 33, Red Cell Distribution Width 17.7H, Platelet Count 283, Mean Platelet Volume 9.5, Immature Granulocyte % (Auto) 0, Neutrophils (%) (Auto) 76H, Lymphocytes (%) (Auto) 18, Monocytes (%) (Auto) 5, Eosinophils (%) (Auto) 0, Basophils (%) (Auto) 0, Neutrophils # (Auto) 6.0, Lymphocytes # (Auto) 1.4, Monocytes # (Auto) 0.4, Eosinophils # (Auto) 0.0, Basophils # (Auto) 0.0, Immature Granulocyte # (Auto) 0.0, Prothrombin Time 17.1H, INR Comment 1.4, Activated Partial Thromboplast Time 35, Sodium Level 139, Potassium Level 3.5L, Chloride Level 100, Carbon Dioxide Level 26, Anion Gap 13, Blood Urea Nitrogen 28H, Creatinine 1.22, Estimat Glomerular Filtration Rate 67, BUN/Creatinine Ratio 23, Glucose Level 157H, Calcium Level 8.6, Corrected Calcium 9.2, Magnesium Level 1.6, Total Bilirubin 2.1H, Aspartate Amino Transf (AST/SGOT) 54H , Alanine Aminotransferase (ALT/SGPT) 68H, Alkaline Phosphatase 276H, Troponin I < 0.30, Pro-B-Type Natriuretic Peptide 5700.0H, Total Protein 6.2L, Albumin 3.3 11/09/21 05:15: White Blood Count 9.3, Red Blood Count 4.93, Hemoglobin 14.6, Hematocrit 45, Mean Corpuscular Volume 92, Mean Corpuscular Hemoglobin 30, Mean Corpuscular Hemoglobin Concent 32, Red Cell Distribution Width 17.7H, Platelet Count 274, Mean Platelet Volume 9.7, Immature Granulocyte % (Auto) 0, Neutrophils (%) (Auto) 64, Lymphocytes (%) (Auto) 25, Monocytes (%) (Auto) 9, Eosinophils (%) (Auto) 1, Basophils (%) (Auto) 0, Neutrophils # (Auto) 6.0, Lymphocytes # (Auto) 2.3, Monocytes # (Auto) 0.9, Eosinophils # (Auto) 0.1, Basophils # (Auto) 0.0, Immature Granulocyte # (Auto) 0.0, Sodium Level 141, Potassium Level 3.3L, Chloride Level 103, Carbon Dioxide Level 22, Anion Gap 16H, Blood Urea Nitrogen 25H, Creatinine 1.20, Estimat Glomerular Filtration Rate 68, BUN/Creatinine Ratio 21, Glucose Level 122H, Calcium Level 8.7, Corrected Calcium 9.3, Magnesium Level 1.7, Total Bilirubin 2.0H, Aspartate Amino Transf (AST/SGOT) 58H , Alanine Aminotransferase (ALT/SGPT) 76H, Alkaline Phosphatase 232H, Total Protein 6.2L, Albumin 3.2 Laboratory Tests 11/08/21 17:28 11/09/21 05:15 A/P-Cardiology Assessment/Admission Diagnosis Ac on chronic CHF of undetermined etiology RHONDA - non-compliance with therapy Obesity - BMI approx 51 Electrolyte abnormalities Discussion and Recomendations * Treat with diuretic * Replenish electrolytes * Monitor labs * Echo * Further heart failure meds to be based on echo results * Advised compliance with treatment of RHONDA * Answered his questions in detail ADONIS JAIMES MD FACP FACC CCDS Nov 09, 2021 14:29
[2021-11-09] MEDS ORDERED: KCL 20 MEQ TAB (K-DUR) PO ONE (14:45)
--- NOTE | 2021-11-09 15:24 | Tele-ICU Progress Note ---
Subjective Date Seen by a Provider: Nov 09, 2021 Time Seen by a Provider: 15:04 Subjective/Events-last exam This virtual visit was conducted using real time audio/video. Admitted w wt gain, dyspnea. Thank you for asking us to see this patient for respiratory insufficiency due to COPD Recent events: transferred to ICU w Afib/RVR. PMH:RHONDA w poor compliance w CPAP, COPD. SH: smoking history: former. FH: Non-contributory ROS: as in HPI. PE: Obese. Undistressed. Afib 122/min. O2 sat 95% on RA. HEENT: No obvious masses, adenopathy or JVD. Chest: clear to auscultation. CV: Irreg. S1 S2 No murmur or added sounds. Abd: Non-tender. Bowel sounds Y. : Unremarkable. Crockett N. ORCHARD PRUNER/psychiatric: Grossly intact. No obvious focal findings. Extremities: 2+ edema. Capillary refill < 3 seconds. Skin: unremarkable. Results: Elevated BNP 5700, BUN 25. Decreased K 3.3. CXR: Hyperinflated, cardiomegaly, no infilts.. Available chart/ vitals / labs / images reviewed. Video assessment done using teleICU camera, rest of exam as per RN. A/P: Respiratory insufficiency: Continue present management with Duonebs Monitor for increasing oxygenation needs and/or need for NIV. Critical Care: critically ill patient. Cont. Panfilo Lewis Eliquis. Replace Yomi. Discussed with NADJA Leon. Asked RN to reach out to eICU if any questions or concerns later. Time spent with patient/coordination of care with other health professionals (mins): 20 Sepsis Event Evaluation Height, Weight, BMI Height: '" Weight: lbs. oz. kg; 51.41 BMI Method: Exam Exam Patient acknowledged, consented, and participated in this virtual visit which was conducted using real time audio/video Vital Signs Date Time Temp Pulse Resp B/P (MAP) Pulse Ox O2 Delivery O2 Flow Rate FiO2 11/09/21 15:00 121 15 119/85 (96) Room Air 11/09/21 14:00 121 23 143/98 (113) Room Air 11/09/21 13:00 126 11/09/21 13:00 140 10 126/96 (106) Room Air 11/09/21 12:00 Room Air 11/09/21 11:30 36.1 121 16 127/85 (99) 95 Room Air 11/09/21 08:02 96 Room Air 11/09/21 08:00 Room Air 11/09/21 08:00 36.8 135 16 120/94 (103) 95 11/09/21 07:00 118 11/09/21 04:36 35.9 11/09/21 04:06 120 18 128/87 (101) 95 11/09/21 03:58 97 Room Air 11/09/21 01:01 121 11/09/21 00:39 118 18 121/84 (96) 97 11/09/21 00:35 97 Room Air 11/08/21 23:54 36.4 120 18 119/84 (96) 97 Room Air 11/08/21 23:52 36.8 120 20 119/84 (96) 97 Room Air 11/08/21 22:32 35.8 120 95 21 11/08/21 22:15 97 Room Air 11/08/21 19:01 120 18 117/73 97 Room Air 11/08/21 17:14 35.8 102 16 132/85 (101) Room Air I & O 11/09/21 07:00 Intake Total 950 ml Output Total 1100 ml Balance -150 ml Height & Weight Height: '" Weight: lbs. oz. kg; 51.41 BMI Method: General Appearance: No Apparent Distress, Obese HEENT: PERRL/EOMI, Normal ENT Inspection, Pharynx Normal Neck: Full Range of Motion, Normal Inspection, Non Tender, Supple Respiratory: Chest Non Tender, No Accessory Muscle Use, No Respiratory Distress, Crackles Cardiovascular: Regular Rate, Rhythm, Normal Peripheral Pulses, Other (lower extremity edema) Capillary Refill: Less Than 3 Seconds Extremity: Normal Capillary Refill, Normal Range of Motion, Non Tender, No Calf Tenderness, Pedal Edema Neurologic/Psychiatric: Alert, No Motor/Sensory Deficits, Normal Mood/Affect Skin: Normal Color, Warm/Dry Lymphatic: No Adenopathy Results Lab Laboratory Tests 11/08/21 17:28 11/09/21 05:15 Assessment/Plan Assessment/Plan See free text. Critical Care: Critically Ill Patient YANCI CARLISLE MD Nov 09, 2021 15:24
[2021-11-09] MEDS: APIXABAN 5 MG (ELIQUIS) TABLET PO SCH (20:04)
[2021-11-09] MEDS: KCL 20 MEQ TAB (K-DUR) PO SCH (20:04)
[2021-11-09] MEDS: ACETAMINOPHEN 325 MG TABLET PO PRN (21:36)
[2021-11-10] VITALS (45 sets, daily range): BP systolic 73–161; BP diastolic 56–119
[2021-11-10 05:29] LABS: BASOPHILS % (AUTO) 1 % (0-10); EOSINOPHILS # (AUTO) 0.2 10^3/uL (0.0-0.3); EOSINOPHILS % (AUTO) 2 % (0-10); HEMATOCRIT 49 % (40-54); HEMOGLOBIN 15.6 g/dL (13.3-17.7); LYMPHOCYTES # (AUTO) 2.3 10^3/uL (1.0-4.0); LYMPHOCYTES % (AUTO) 28 % (12-44); MEAN CORPUSCULAR HEMOGLOBIN 30 pg (25-34); MEAN CORPUSCULAR HGB CONC 32 g/dL (32-36); MEAN CORPUSCULAR VOLUME 93 fL (80-99); MEAN PLATELET VOLUME 9.7 fL (9.0-12.2); MONOCYTES # (AUTO) 0.7 10^3/uL (0.0-1.0); MONOCYTES % (AUTO) 8 % (0-12); NEUTROPHILS # (AUTO) 5.1 10^3/uL (1.8-7.8); NEUTROPHILS % (AUTO) 62 % (42-75); PLATELET COUNT 295 10^3/uL (130-400); WHITE BLOOD COUNT 8.3 10^3/uL (4.3-11.0)
[2021-11-10 05:41] LABS: ALBUMIN 3.4 GM/DL (3.2-4.5); POTASSIUM 3.8 MMOL/L (3.6-5.0)
[2021-11-10 05:42] LABS: CALCIUM 8.7 MG/DL (8.5-10.1)
[2021-11-10 05:43] LABS: TOTAL PROTEIN 6.7 GM/DL (6.4-8.2)
[2021-11-10 05:45] LABS: BILIRUBIN,TOTAL 1.8 MG/DL (0.1-1.0)
[2021-11-10 05:47] LABS: CREATININE SERUM 1.41 MG/DL (0.60-1.30)
[2021-11-10 05:50] LABS: MAGNESIUM 1.5 MG/DL (1.6-2.4)
[2021-11-10] MEDS ORDERED: MAGNESIUM 1 GM/100 ML IVPB 200 ML IV ONE (05:59)
[2021-11-10] MEDS ORDERED: MAGNESIUM 2 GM/50 ML IVPB 50 ML IV ONE (06:00)
[2021-11-10] MEDS: dilTIAZem DRIP PRE-MIX 125 ML IV SCH ×2 (06:05→14:24)
[2021-11-10] MEDS: MAGNESIUM 1 GM/100 ML IVPB 100 ML IV SCH ×2 (06:11→06:12)
[2021-11-10] MEDS: FUROSEMIDE 40 MG/4 ML INJ (LASIX) IVP SCH (06:12)
[2021-11-10] MEDS: RT-ALBUTEROL/IPRATROPIUM 3 ML (DUONEB) VIAL INH SCH ×4 (07:30→18:55)
[2021-11-10] MEDS: KCL 20 MEQ TAB (K-DUR) PO SCH ×2 (09:28→21:05)
[2021-11-10] MEDS: BENZONATATE 100 MG (TESSALON) CAPSULE PO SCH ×3 (09:28→21:06)
[2021-11-10] MEDS: APIXABAN 5 MG (ELIQUIS) TABLET PO SCH ×2 (09:29→21:05)
[2021-11-10] MEDS: DOCUSATE SODIUM 100 MG (COLACE) CAP PO SCH ×2 (09:29→23:24)
[2021-11-10] MEDS ORDERED: FUROSEMIDE 40 MG/4 ML INJ (LASIX) IVP ONE (09:30)
[2021-11-10] MEDS ORDERED: DIGOXIN 0.25 MG/ML (LANOXIN) 2 ML AMP IV ONE ×2 (09:30→11:30)
[2021-11-10] MEDS ORDERED: SPIRONOLACTONE 25 MG (ALDACTONE) TAB PO ONE (09:45)
[2021-11-10] MEDS ORDERED: METOLAZONE 5 MG (ZAROXOLYN) TAB PO ONE (09:45)
[2021-11-10] MEDS ORDERED: EMPAGLIFLOZIN 10 MG TABLET (JARDIANCE) PO ONE (09:45)
[2021-11-10] MEDS ORDERED: SACUBITRIL/VALSARTAN 24/26 MG (ENTRESTO) TABLET PO ONE (09:45)
[2021-11-10] MEDS: ONDANSETRON 4 MG/2 ML (SDV) Z0FRAN IV PRN (11:12)
[2021-11-10] MEDS ORDERED: LOSA100T57 PO (11:59)
[2021-11-10] MEDS ORDERED: RT-ALBUINH IH (11:59)
[2021-11-10] MEDS ORDERED: HYDR25TA4 PO (11:59)
[2021-11-10] MEDS ORDERED: POTA-51 PO (11:59)
[2021-11-10] MEDS ORDERED: BACL10TA PO (11:59)
[2021-11-10] MEDS ORDERED: ALLO300T2 PO (11:59)
[2021-11-10] MEDS ORDERED: FURO80TA3 PO (11:59)
[2021-11-10] MEDS ORDERED: ALB0.5V INH (11:59)
[2021-11-10] MEDS ORDERED: METO50TA15 PO (11:59)
[2021-11-10] MEDS ORDERED: ACHD5005 PO (11:59)
[2021-11-10] MEDS ORDERED: ASPI-1238 PO (12:02)
[2021-11-10] MEDS ORDERED: CALC-687 PO (12:02)
[2021-11-10] MEDS ORDERED: ASCO-262 PO (12:02)
[2021-11-10] MEDS ORDERED: CYAN500T8 PO (12:02)
--- NOTE | 2021-11-10 13:14 | Tele-ICU Progress Note ---
Subjective Date Seen by a Provider: Nov 10, 2021 Time Seen by a Provider: 13:13 Subjective/Events-last exam (Tele-ICU Physician , Progress Note ) Available chart/ vitals / labs / Images reviewed Video assessment done using teleICU camera, rest of exam as per RN Discussed with RN , EXAM PER RN Events overnight : Afebrile FiO2 - ra I/O = Drips: Pressors: , hemodynamically stable Consultants: A/P Acute / on chronic CHF of undetermined etiology -ECHO 11/09 - EF 35% grI dst dsfnc - diuretics , dig Afib/RVR - card gtt - on ELIQUIS COPD - cont br-dilat RHONDA -noncompliant with CPAP -RVSP on ECHO 40 mm gh Obesity - BMI approx 51 Lines : (Central Line Necessity Reviewed) Crockett: OG: Nutrition: Analgesia: Anxiety/ delirium VTE Prophylaxis: Stress Ulcer Prophylaxis: Plans in collaboration with bedside consultants and IM MDs. Discussed with RN to reach out if any questions or concerns A total of 31 minutes of critical care time was devoted to this patient today, required to treat and/or prevent further deterioration of critical care condition ( as above) . Sepsis Event Evaluation Height, Weight, BMI Height: '" Weight: lbs. oz. kg; 54.08 BMI Method: Exam Exam Patient acknowledged, consented, and participated in this virtual visit which was conducted using real time audio/video Vital Signs Date Time Temp Pulse Resp B/P (MAP) Pulse Ox O2 Delivery O2 Flow Rate FiO2 11/10/21 11:00 123 21 111/100 (104) 94 Nasal Cannula 2.00 11/10/21 10:00 124 35 123/101 (108) 93 Nasal Cannula 2.00 11/10/21 09:35 36.4 11/10/21 09:00 124 15 118/88 (98) Nasal Cannula 2.00 11/10/21 08:00 95 Nasal Cannula 2.00 11/10/21 08:00 124 19 123/101 (108) 87 Nasal Cannula 2.00 11/10/21 07:00 124 29 124/81 (95) 86 Nasal Cannula 2.00 11/10/21 07:00 124 11/10/21 06:00 124 29 124/98 (107) 95 Nasal Cannula 2.00 11/10/21 05:00 123 9 136/112 (120) 95 Nasal Cannula 2.00 11/10/21 04:00 97 Nasal Cannula 2.00 11/10/21 04:00 125 23 128/99 (114) 95 Nasal Cannula 2.00 11/10/21 03:42 36.5 11/10/21 03:00 105 18 123/93 (98) 96 Nasal Cannula 2.00 11/10/21 02:00 99 15 117/87 (96) 96 Nasal Cannula 2.00 11/10/21 01:00 114 11/10/21 01:00 114 13 125/98 (110) 95 Nasal Cannula 2.00 11/10/21 00:00 96 Nasal Cannula 2.00 11/10/21 00:00 113 12 121/85 (99) 95 Nasal Cannula 2.00 11/09/21 23:59 36.1 11/09/21 23:00 122 19 116/95 (103) 93 Nasal Cannula 2.00 11/09/21 22:00 122 12 105/81 (89) 95 Nasal Cannula 2.00 11/09/21 21:00 123 18 108/83 (99) 96 Nasal Cannula 2.00 11/09/21 20:00 121 19 110/81 (93) 96 Nasal Cannula 2.00 11/09/21 19:58 95 Nasal Cannula 2.00 11/09/21 19:50 93 Room Air 11/09/21 19:50 36.7 122 16 109/80 (90) 93 Room Air 11/09/21 19:30 36.8 11/09/21 19:01 122 118/80 (96) 95 Room Air 11/09/21 19:00 122 11/09/21 18:44 Room Air 11/09/21 18:39 98 Nasal Cannula 1.50 11/09/21 18:00 122 20 128/95 (106) 97 Nasal Cannula 2.00 11/09/21 17:00 124 28 140/105 (117) 96 Nasal Cannula 2.00 11/09/21 16:00 123 30 117/95 (102) 94 Nasal Cannula 2.00 11/09/21 16:00 Nasal Cannula 2.00 11/09/21 15:26 97 Nasal Cannula 2.00 11/09/21 15:00 121 15 119/85 (96) Room Air 11/09/21 14:00 121 23 143/98 (113) Room Air I & O 11/10/21 07:00 Intake Total 2275 ml Output Total 2900 ml Balance -625 ml Height & Weight Height: '" Weight: lbs. oz. kg; 54.08 BMI Method: General Appearance: Anxious, Chronically ill, Mild Distress, Obese HEENT: PERRL/EOMI, Normal ENT Inspection, Pharynx Normal, Moist Mucous M embranes Neck: Full Range of Motion, Normal Inspection, Non Tender Respiratory: Chest Non Tender, No Accessory Muscle Use, No Respiratory Distress, Decreased Breath Sounds, Wheezing Cardiovascular: No Edema, No Gallop, No JVD, No Murmur, Normal Peripheral Pulses, Tachycardia Capillary Refill: Less Than 3 Seconds Extremity: Normal Capillary Refill, Normal Inspection, Normal Range of Motion, Non Tender, No Calf Tenderness, No Pedal Edema Neurologic/Psychiatric: Alert, Oriented x3, No Motor/Sensory Deficits, Normal Mood/Affect Skin: Normal Color, Warm/Dry Lymphatic: No Adenopathy Results Lab Laboratory Tests 11/08/21 17:28 11/09/21 05:15 11/10/21 05:05 Assessment/Plan Assessment/Plan 1 TORSTEN LEACH MD Nov 10, 2021 13:14
--- NOTE | 2021-11-10 15:32 | Progress Note - Cardiology ---
Cardiology SOAP Progress Note Subjective: Still short of breath No cp No palp or syncope Swelling and abd distention as before Gen malaise and weakness Objective: I&O/Vital Signs 11/10/21 11/10/21 11/10/21 11/10/21 03:42 04:00 04:00 05:00 Temp 36.5 Pulse 125 123 Resp 23 9 B/P (MAP) 128/99 (114) 136/112 (120) Pulse Ox 95 97 95 O2 Delivery Nasal Cannula Nasal Cannula Nasal Cannula O2 Flow Rate 2.00 2.00 2.00 11/10/21 11/10/21 11/10/21 11/10/21 06:00 07:00 07:00 08:00 Pulse 124 124 124 124 Resp 29 29 19 B/P (MAP) 124/98 (107) 124/81 (95) 123/101 (108) Pulse Ox 95 86 87 O2 Delivery Nasal Cannula Nasal Cannula Nasal Cannula O2 Flow Rate 2.00 2.00 2.00 11/10/21 11/10/21 11/10/21 11/10/21 08:00 09:00 09:35 10:00 Temp 36.4 Pulse 124 124 Resp 15 35 B/P (MAP) 118/88 (98) 123/101 (108) Pulse Ox 95 93 O2 Delivery Nasal Cannula Nasal Cannula Nasal Cannula O2 Flow Rate 2.00 2.00 2.00 11/10/21 11/10/21 11:00 12:00 Pulse 123 Resp 21 B/P (MAP) 111/100 (104) Pulse Ox 94 97 O2 Delivery Nasal Cannula Nasal Cannula O2 Flow Rate 2.00 2.00 11/10/21 00:00 Intake Total 1825 ml Output Total 2150 ml Balance -325 ml Constitutional: AAO x 3, well-developed, well-nourished Respiratory: No accessory muscle use; other (fair air entry, prolonged exp, coarse and fine crackles in the bases) Cardiovascular: irregularly irregular, tachycardia, systolic murmur (soft HAL at card base) Gastrointestional: No tender; soft, distended; No guarding, No rebound; audible bowel sounds Extremities: swelling (mild to mod, pitting edema of both legs); No clubbing, No cyanosis Neurologic/Psychiatric: other (moves all limbs) Skin: warm/dry; No rash on exposed areas, No ulcerations on exposed areas Results/Procedures: Labs Laboratory Tests 11/10/21 05:05: White Blood Count 8.3, Red Blood Count 5.28, Hemoglobin 15.6, Hematocrit 49, Mean Corpuscular Volume 93, Mean Corpuscular Hemoglobin 30, Mean Corpuscular Hemoglobin Concent 32, Red Cell Distribution Width 18.0H, Platelet Count 295, Mean Platelet Volume 9.7, Immature Granulocyte % (Auto) 0, Neutrophils (%) (Auto) 62, Lymphocytes (%) (Auto) 28, Monocytes (%) (Auto) 8, Eosinophils (%) (Auto) 2, Basophils (%) (Auto) 1, Neutrophils # (Auto) 5.1, Lymphocytes # (Auto) 2.3, Monocytes # (Auto) 0.7, Eosinophils # (Auto) 0.2, Basophils # (Auto) 0.0, Immature Granulocyte # (Auto) 0.0, Sodium Level 136, Potassium Level 3.8, Chloride Level 101, Carbon Dioxide Level 20L, Anion Gap 15H, Blood Urea Nitrogen 24H, Creatinine 1.41H, Estimat Glomerular Filtration Rate 56, BUN/Creatinine Ratio 17, Glucose Level 190H, Calcium Level 8.7, Corrected Calcium 9.2, Magnesium Level 1.5L, Total Bilirubin 1.8H, Aspartate Amino Transf (AST/SGOT) 49H, Alanine Aminotransferase (ALT/SGPT) 76H, Alkaline Phosphatase 231H, Total Protein 6.7, Albumin 3.4 Microbiology 11/09/21 MRSA Screen - Final, Complete MRSA not isolated Laboratory Tests 11/08/21 17:28 11/09/21 05:15 11/10/21 05:05 A/P: Assessment: Ac on chronic systolic CHF - Echo 11/09/21: LVEF 35-40%, global hypokinesis of LV, mod enlargement of both atria, mild MR, mild to mod TR, grade 1 wan dysfunction of LV, PASP 40-45 mmHg RHONDA - non-compliance with therapy Obesity - BMI approx 51 Electrolyte abnormalities GERALD 1, likely due to CHF Plan: * Treat with diuretic * Replenish electrolytes * Monitor labs * Further heart failure meds added (see orders) * Continue iv dilt for rate control and add iv dig * Consider JACKIE and CV tomorrow if remains in a fib * Advised compliance with treatment of RHONDA * Answered his questions in detail ADONIS JAIMES MD FACP FAC CCDS Nov 10, 2021 15:32
--- NOTE | 2021-11-10 16:08 | Progress Note ---
Subjective Subjective/Events-last exam Patient states that he is not feeling well this AM. He is coughing alot and wanting cough medication. States that he does not feel any different with the lasix. Discussed with patient that the fluid did not build up in one day so it will take a little bit to get the fluid off. Tolerating PO diet. Review of Systems General: Malaise Pulmonary: Dyspnea, Cough Cardiovascular: Palpitations, Edema Gastrointestinal: Abdominal Pain; No: Nausea, Vomiting Neurological: Weakness, Incoordination Objective Exam Last Set of Vital Signs Vital Signs Date Time Temp Pulse Resp B/P (MAP) Pulse Ox O2 Delivery O2 Flow Rate FiO2 11/10/21 12:00 97 Nasal Cannula 2.00 11/10/21 11:00 123 21 111/100 (104) 11/10/21 09:35 36.4 11/08/21 22:32 21 Capillary Refill : Less Than 3 Seconds I&O Intake and Output 11/10/21 00:00 Intake Total 2775 ml Output Total 3250 ml Balance -475 ml Intake Oral 2650 ml IV Total 125 ml Output Urine Total 3250 ml General: Alert, Oriented X3, Mild Distress (conversational dyspnea) Lungs: Other (diffuse wheezing and diminished breath sounds) Heart: No Murmurs, Other (tachycardic rate) Abdomen: Soft, No Tenderness, No Masses Extremities: Other (3+ pitting edema bilaterally) Neuro: Normal Speech, Cranial Nerves 3-12 NL Results/Procedures Lab Laboratory Tests 11/10/21 05:05: White Blood Count 8.3, Red Blood Count 5.28, Hemoglobin 15.6, Hematocrit 49, Mean Corpuscular Volume 93, Mean Corpuscular Hemoglobin 30, Mean Corpuscular Hemoglobin Concent 32, Red Cell Distribution Width 18.0H, Platelet Count 295, Mean Platelet Volume 9.7, Immature Granulocyte % (Auto) 0, Neutrophils (%) (Auto) 62, Lymphocytes (%) (Auto) 28, Monocytes (%) (Auto) 8, Eosinophils (%) (Auto) 2, Basophils (%) (Auto) 1, Neutrophils # (Auto) 5.1, Lymphocytes # (Auto) 2.3, Monocytes # (Auto) 0.7, Eosinophils # (Auto) 0.2, Basophils # (Auto) 0.0, Immature Granulocyte # (Auto) 0.0, Sodium Level 136, Potassium Level 3.8, Chloride Level 101, Carbon Dioxide Level 20L, Anion Gap 15H, Blood Urea Nitrogen 24H, Creatinine 1.41H, Estimat Glomerular Filtration Rate 56, BUN/Creatinine Ratio 17, Glucose Level 190H, Calcium Level 8.7, Corrected Calcium 9.2, Magnesium Level 1.5L, Total Bilirubin 1.8H, Aspartate Amino Transf (AST/SGOT) 49H, Alanine Aminotransferase (ALT/SGPT) 76H, Alkaline Phosphatase 231H, Total Protein 6.7, Albumin 3.4 Microbiology 11/09/21 MRSA Screen - Final, Complete MRSA not isolated Assessment/Plan Assessment/Plan (1) Acute on chronic systolic (congestive) heart failure Status: Acute Assessment & Plan: 11/10: New onset CHF, approx 60# weight gain over the last 1.5 months, Cardiology consulted, appreciate recommendations, EF 35-40%, Continue with lasix, strict I/Os (2) Atrial fibrillation with rapid ventricular response Status: Acute Assessment & Plan: 11/10: Cardiology consulted, continues in A fib with medication management, considering cardioversion (3) Acute kidney failure Status: Acute Assessment & Plan: 11/10: Likely 2/2 aggressive diuresis, will continue to monitor Qualifiers: Qualified Codes: N17.9 - Acute kidney failure, unspecified (4) Volume overload Status: Acute Qualifiers: Qualified Codes: E87.79 - Other fluid overload (5) RHONDA (obstructive sleep apnea) Status: Chronic Assessment & Plan: 11/10: Non compliant (6) BMI 50.0-59.9, adult Status: Chronic (7) DVT prophylaxis Status: Acute Assessment & Plan: -DAMIAN Adkins MD Nov 10, 2021 16:08
[2021-11-10] MEDS ORDERED: CALCIUM CARBONATE 500 MG (TUMS) TAB.CHEW PO PRN (18:45)
[2021-11-10] MEDS: diphenhydrAMINE 25 MG TAB (BENADRYL) PO PRN (21:05)
[2021-11-10] MEDS: MELATONIN 3 MG TABLET PO PRN (21:06)
[2021-11-10] MEDS: SACUBITRIL/VALSARTAN 24/26 MG (ENTRESTO) TABLET PO SCH (21:06)
[2021-11-10] MEDS: FAMOTIDINE 20 MG (PEPCID) TABLET PO SCH (21:14)
[2021-11-11] VITALS (24 sets, daily range): BP systolic 82–172; BP diastolic 49–89
[2021-11-11] MEDS: ACETAMINOPHEN 325 MG TABLET PO PRN ×3 (02:08→17:29)
[2021-11-11 05:03] LABS: BASOPHILS # (AUTO) 0.1 10^3/uL (0.0-0.1); BASOPHILS % (AUTO) 1 % (0-10); EOSINOPHILS # (AUTO) 0.3 10^3/uL (0.0-0.3); EOSINOPHILS % (AUTO) 3 % (0-10); HEMATOCRIT 45 % (40-54); HEMOGLOBIN 14.3 g/dL (13.3-17.7); LYMPHOCYTES # (AUTO) 2.5 10^3/uL (1.0-4.0); LYMPHOCYTES % (AUTO) 25 % (12-44); MEAN CORPUSCULAR HEMOGLOBIN 30 pg (25-34); MEAN CORPUSCULAR HGB CONC 32 g/dL (32-36); MEAN CORPUSCULAR VOLUME 92 fL (80-99); MEAN PLATELET VOLUME 9.5 fL (9.0-12.2); MONOCYTES # (AUTO) 0.8 10^3/uL (0.0-1.0); MONOCYTES % (AUTO) 8 % (0-12); NEUTROPHILS # (AUTO) 6.5 10^3/uL (1.8-7.8); NEUTROPHILS % (AUTO) 64 % (42-75); PLATELET COUNT 246 10^3/uL (130-400); WHITE BLOOD COUNT 10.2 10^3/uL (4.3-11.0)
[2021-11-11 05:21] LABS: ALBUMIN 2.8 GM/DL (3.2-4.5); POTASSIUM 3.8 MMOL/L (3.6-5.0)
[2021-11-11 05:23] LABS: CALCIUM 8.5 MG/DL (8.5-10.1)
[2021-11-11 05:24] LABS: TOTAL PROTEIN 5.6 GM/DL (6.4-8.2)
[2021-11-11 05:26] LABS: BILIRUBIN,TOTAL 1.6 MG/DL (0.1-1.0)
[2021-11-11 05:27] LABS: CREATININE SERUM 1.07 MG/DL (0.60-1.30)
[2021-11-11 05:30] LABS: MAGNESIUM 1.8 MG/DL (1.6-2.4)
[2021-11-11] MEDS: RT-ALBUTEROL/IPRATROPIUM 3 ML (DUONEB) VIAL INH SCH ×4 (06:52→19:36)
[2021-11-11] MEDS: dilTIAZem DRIP PRE-MIX 125 ML IV SCH (08:09)
[2021-11-11] MEDS: FUROSEMIDE 40 MG/4 ML INJ (LASIX) IVP SCH (08:09)
[2021-11-11] MEDS ORDERED: MIDAZOLAM 2 MG/2 ML (VERSED) VIAL ONE (08:45)
[2021-11-11] MEDS ORDERED: NS IV 500 ML 500 ML ONE (08:49)
--- NOTE | 2021-11-11 09:15 | Progress Note - Cardiology ---
Cardiology SOAP Progress Note Subjective: Shortness of breath present Feeling of abd distention present No n/v/d No cp Gen malaise Objective: I&O/Vital Signs 11/10/21 11/10/21 11/11/21 11/11/21 22:00 23:00 00:00 00:00 Pulse 96 69 93 Resp 21 12 25 B/P (MAP) 86/59 (69) 103/68 (82) 111/74 (87) Pulse Ox 96 94 95 94 O2 Delivery Nasal Cannula Nasal Cannula Nasal Cannula Nasal Cannula O2 Flow Rate 2.00 2.00 2.00 2.00 11/11/21 11/11/21 11/11/21 11/11/21 00:00 01:00 01:00 02:00 Temp 36.0 Pulse 109 109 76 Resp 15 9 B/P (MAP) 124/85 (92) 101/59 (72) Pulse Ox 96 93 O2 Delivery Nasal Cannula Nasal Cannula O2 Flow Rate 2.00 2.00 11/11/21 11/11/21 11/11/21 11/11/21 03:00 04:00 04:00 05:00 Pulse 75 70 65 Resp 14 23 11 B/P (MAP) 96/49 (65) 97/57 (69) 96/60 (77) Pulse Ox 93 92 94 94 O2 Delivery Nasal Cannula Nasal Cannula Nasal Cannula Nasal Cannula O2 Flow Rate 2.00 2.00 2.00 2.00 11/11/21 11/11/21 11/11/21 06:00 06:53 07:52 Temp 36.2 Pulse 61 Resp 13 B/P (MAP) 103/52 (74) Pulse Ox 94 94 O2 Delivery Nasal Cannula Nasal Cannula O2 Flow Rate 2.00 2.00 11/11/21 00:00 Intake Total 2116 ml Output Total 5825 ml Balance -3709 ml Constitutional: AAO x 3, well-developed, well-nourished Respiratory: No accessory muscle use; other (fair air entry, prolonged exp, coarse and fine crackles in the bases) Cardiovascular: irregularly irregular, tachycardia, systolic murmur (soft HAL at card base) Gastrointestional: No tender; soft, distended; No guarding, No rebound; audible bowel sounds Extremities: swelling (mild to mod, pitting edema of both legs); No clubbing, No cyanosis Neurologic/Psychiatric: other (moves all limbs) Skin: warm/dry; No rash on exposed areas, No ulcerations on exposed areas Results/Procedures: Labs Laboratory Tests 11/11/21 04:55: White Blood Count 10.2, Red Blood Count 4.84, Hemoglobin 14.3, Hematocrit 45, Mean Corpuscular Volume 92, Mean Corpuscular Hemoglobin 30, Mean Corpuscular Hemoglobin Concent 32, Red Cell Distribution Width 17.2H, Platelet Count 246, Mean Platelet Volume 9.5, Immature Granulocyte % (Auto) 0, Neutrophils (%) (Auto) 64, Lymphocytes (%) (Auto) 25, Monocytes (%) (Auto) 8, Eosinophils (%) (Auto) 3, Basophils (%) (Auto) 1, Neutrophils # (Auto) 6.5, Lymphocytes # (Auto) 2.5, Monocytes # (Auto) 0.8, Eosinophils # (Auto) 0.3, Basophils # (Auto) 0.1, Immature Granulocyte # (Auto) 0.0, Sodium Level 137, Potassium Level 3.8, Chloride Level 99, Carbon Dioxide Level 26, Anion Gap 12, Blood Urea Nitrogen 25H, Creatinine 1.07, Estimat Glomerular Filtration Rate 78, BUN/Creatinine Ratio 23, Glucose Level 114H, Calcium Level 8.5, Corrected Calcium 9.5, Magnesium Level 1.8, Total Bilirubin 1.6H, Aspartate Amino Transf (AST/SGOT) 37H , Alanine Aminotransferase (ALT/SGPT) 58H, Alkaline Phosphatase 175H, Total Protein 5.6L, Albumin 2.8L, Digoxin Level 0.48L Microbiology 11/09/21 MRSA Screen - Final, Complete MRSA not isolated Laboratory Tests 11/10/21 05:05 11/11/21 04:55 A/P: Assessment: Persistent atrial flutter with RVR - 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 - successful elec CV (after JACKIE) to NSR on 11/11/21 - oral anticoag for stroke prophylaxis is being continued Ac on chronic systolic CHF - Echo 11/09/21: LVEF 35-40%, global hypokinesis of LV, mod enlargement of both atria, mild MR, mild to mod TR, grade 1 wan dysfunction of LV, PASP 40-45 mmHg RHONDA - non-compliance with therapy Obesity with obesity hypoventilation - BMI approx 51 Plan: * Treat with diuretic * Replenish electrolytes * Monitor labs * Continue heart failure meds (see orders) * Continue long-acting dilt for rate control * Advised compliance with treatment of RHONDA ADONIS JAIMES MD FACP FAC CCDS Nov 11, 2021 09:15
[2021-11-11] MEDS ORDERED: proPOfol 200 MG/20 ML (DIPRIVAN) VIAL IV ONE (09:34)
[2021-11-11] MEDS: DIGOXIN 0.25 MG (LANOXIN) TAB PO SCH (10:43)
[2021-11-11] MEDS: APIXABAN 5 MG (ELIQUIS) TABLET PO SCH ×2 (10:45→20:23)
[2021-11-11] MEDS: SACUBITRIL/VALSARTAN 24/26 MG (ENTRESTO) TABLET PO SCH ×2 (10:46→20:23)
[2021-11-11] MEDS: BENZONATATE 100 MG (TESSALON) CAPSULE PO SCH ×3 (10:46→20:23)
[2021-11-11] MEDS: DOCUSATE SODIUM 100 MG (COLACE) CAP PO SCH ×2 (10:46→20:23)
[2021-11-11] MEDS: SPIRONOLACTONE 25 MG (ALDACTONE) TAB PO SCH (10:46)
[2021-11-11] MEDS: KCL 20 MEQ TAB (K-DUR) PO SCH ×2 (10:47→20:24)
[2021-11-11] MEDS: FAMOTIDINE 20 MG (PEPCID) TABLET PO SCH ×2 (10:47→20:24)
[2021-11-11] MEDS: EMPAGLIFLOZIN 10 MG TABLET (JARDIANCE) PO SCH (10:48)
--- NOTE | 2021-11-11 11:05 | Tele-ICU Progress Note ---
Subjective Date Seen by a Provider: Nov 11, 2021 Time Seen by a Provider: 11:05 Subjective/Events-last exam (Tele-ICU Physician , Progress Note ) Available chart/ vitals / labs / Images reviewed Video assessment done using teleICU camera, rest of exam as per RN Discussed with RN , EXAM PER RN Events overnight : Afebrile FiO2 - ra I/O = Drips: Pressors: , hemodynamically stable Consultants: A/P Acute / on chronic CHF of undetermined etiology -ECHO 11/09 - EF 35% grI dst dsfnc - diuretics , dig - as per cards Afib/RVR 11/11 - s/p cardioversion - sinus - card gtt to be stopped as per cards - on ELIQUIS COPD - cont br-dilat RHONDA -noncompliant with CPAP -RVSP on ECHO 40 mm gh Obesity - BMI approx 51 Lines : (Central Line Necessity Reviewed) [place]ck[place]: OG: Nutrition: Analgesia: Anxiety/ delirium VTE Prophylaxis: Stress Ulcer Prophylaxis: Plans in collaboration with bedside consultants and IM MDs. Discussed with RN to reach out if any questions or concerns A total of 15 minutes of critical care time was devoted to this patient today, required to treat and/or prevent further deterioration of critical care condition ( as above) . Sepsis Event Evaluation Height, Weight, BMI Height: '" Weight: lbs. oz. kg; 54.08 BMI Method: Exam Exam Patient acknowledged, consented, and participated in this virtual visit which was conducted using real time audio/video Vital Signs Date Time Temp Pulse Resp B/P (MAP) Pulse Ox O2 Delivery O2 Flow Rate FiO2 11/11/21 10:32 96 Nasal Cannula 3.00 11/11/21 09:00 102 12 116/68 (84) 93 Nasal Cannula 2.00 11/11/21 08:00 69 11 112/89 (97) 90 Nasal Cannula 2.00 11/11/21 07:52 36.2 11/11/21 07:00 62 18 82/56 (65) 93 Nasal Cannula 2.00 11/11/21 06:53 94 Nasal Cannula 2.00 11/11/21 06:51 68 11/11/21 06:00 61 13 103/52 (74) 94 Nasal Cannula 2.00 11/11/21 05:00 65 11 96/60 (77) 94 Nasal Cannula 2.00 11/11/21 04:00 94 Nasal Cannula 2.00 11/11/21 04:00 70 23 97/57 (69) 92 Nasal Cannula 2.00 11/11/21 03:00 75 14 96/49 (65) 93 Nasal Cannula 2.00 11/11/21 02:00 76 9 101/59 (72) 93 Nasal Cannula 2.00 11/11/21 01:00 109 15 124/85 (92) 96 Nasal Cannula 2.00 11/11/21 01:00 109 11/11/21 00:00 36.0 11/11/21 00:00 94 Nasal Cannula 2.00 11/11/21 00:00 93 25 111/74 (87) 95 Nasal Cannula 2.00 11/10/21 23:00 69 12 103/68 (82) 94 Nasal Cannula 2.00 11/10/21 22:00 96 21 86/59 (69) 96 Nasal Cannula 2.00 11/10/21 21:00 98 14 126/90 (107) Nasal Cannula 2.00 11/10/21 20:28 36.3 11/10/21 20:18 94 Nasal Cannula 2.00 11/10/21 20:00 104 150/99 (113) Nasal Cannula 2.00 11/10/21 19:15 103 12 161/67 (98) Nasal Cannula 2.00 11/10/21 19:06 71 11/10/21 19:00 67 10 73/56 (65) Nasal Cannula 2.00 11/10/21 18:55 96 Nasal Cannula 2.00 11/10/21 18:15 60 15 115/76 (89) Nasal Cannula 2.00 11/10/21 18:00 59 13 130/79 (96) Nasal Cannula 2.00 11/10/21 17:45 60 14 130/82 (98) Nasal Cannula 2.00 11/10/21 17:30 60 12 115/72 (86) Nasal Cannula 2.00 11/10/21 17:15 60 16 119/67 (84) Nasal Cannula 2.00 11/10/21 17:00 62 18 136/119 (125) Nasal Cannula 2.00 11/10/21 16:45 90 21 Nasal Cannula 2.00 11/10/21 16:30 65 15 132/94 (107) Nasal Cannula 2.00 11/10/21 16:15 70 26 112/74 (87) Nasal Cannula 2.00 11/10/21 16:00 94 Nasal Cannula 2.00 11/10/21 16:00 99 14 130/97 (108) 94 Nasal Cannula 2.00 11/10/21 15:45 90 16 95 Nasal Cannula 2.00 11/10/21 15:30 60 13 108/78 (88) 93 Nasal Cannula 2.00 11/10/21 15:15 65 22 107/70 (82) 94 Nasal Cannula 2.00 11/10/21 15:00 84 24 104/65 (78) 91 Nasal Cannula 2.00 11/10/21 14:45 90 15 90/71 (77) 95 Nasal Cannula 2.00 11/10/21 14:30 82 28 93/70 (78) 94 Nasal Cannula 2.00 11/10/21 14:15 86 22 109/69 (82) 95 Nasal Cannula 2.00 11/10/21 14:00 89 18 107/79 (88) 94 Nasal Cannula 2.00 11/10/21 13:45 96 29 104/71 (82) 95 Nasal Cannula 2.00 11/10/21 13:30 65 18 103/63 (76) 94 Nasal Cannula 2.00 11/10/21 13:15 109 18 125/98 (107) Nasal Cannula 2.00 11/10/21 13:00 89 11/10/21 13:00 84 23 110/83 (92) Nasal Cannula 2.00 11/10/21 12:45 117 13 147/99 (115) 97 Nasal Cannula 2.00 11/10/21 12:30 87 14 108/85 (93) 93 Nasal Cannula 2.00 11/10/21 12:15 97 15 113/84 (94) 94 Nasal Cannula 2.00 11/10/21 12:00 107 19 110/85 (93) 91 Nasal Cannula 2.00 11/10/21 12:00 97 Nasal Cannula 2.00 11/10/21 11:45 107 25 126/105 (112) 89 Nasal Cannula 2.00 11/10/21 11:30 95 15 111/100 (104) 92 Nasal Cannula 2.00 11/10/21 11:15 105 19 132/104 (113) 94 Nasal Cannula 2.00 l I & O 11/11/21 07:00 Intake Total 2891 ml Output Total 6050 ml Balance -3159 ml Height & Weight Height: '" Weight: lbs. oz. kg; 54.08 BMI Method: General Appearance: Anxious, Chronically ill, Mild Distress, Obese HEENT: PERRL/EOMI, Normal ENT Inspection, Pharynx Normal, Moist Mucous Membranes Neck: Full Range of Motion, Normal Inspection, Non Tender Respiratory: Chest Non Tender, No Accessory Muscle Use, No Respiratory Distress, Decreased Breath Sounds, Wheezing Cardiovascular: No Edema, No Gallop, No JVD, No Murmur, Normal Peripheral Pulses, Tachycardia Capillary Refill: Less Than 3 Seconds Extremity: Normal Capillary Refill, Normal Inspection, Normal Range of Motion, Non Tender, No Calf Tenderness, No Pedal Edema Neurologic/Psychiatric: Alert, Oriented x3, No Motor/Sensory Deficits, Normal Mood/Affect Skin: Normal Color, Warm/Dry Lymphatic: No Adenopathy Results Lab Laboratory Tests 11/10/21 05:05 11/11/21 04:55 Assessment/Plan Assessment/Plan 1 TORSTEN LEACH MD Nov 11, 2021 11:05
--- NOTE | 2021-11-11 11:13 | Progress Note ---
Subjective Subjective/Events-last exam Patient feeling much better this AM. Tolerating PO diet. Review of Systems General: Fatigue Pulmonary: Dyspnea, Cough Neurological: Weakness, Incoordination Objective Exam Last Set of Vital Signs Vital Signs Date Time Temp Pulse Resp B/P (MAP) Pulse Ox O2 Delivery O2 Flow Rate FiO2 11/11/21 10:32 96 Nasal Cannula 3.00 11/11/21 09:00 102 12 116/68 (84) 11/11/21 07:52 36.2 11/08/21 22:32 21 Capillary Refill : Less Than 3 Seconds I&O Intake and Output 11/11/21 00:00 Intake Total 3116 ml Output Total 6575 ml Balance -3459 ml Intake Oral 2666 ml IV Total 450 ml Output Urine Total 6575 ml # Voids 1 General: Alert, Moderate Distress (with any activity) Lungs: Other (diminished breath sounds, basilar wheezing) Heart: Regular Rate, No Murmurs Abdomen: Normal Bowel Sounds, Soft, No Tenderness, No Masses Extremities: Other (2+ pitting edema) Results/Procedures Lab Laboratory Tests 11/11/21 04:55: White Blood Count 10.2, Red Blood Count 4.84, Hemoglobin 14.3, Hematocrit 45, Mean Corpuscular Volume 92, Mean Corpuscular Hemoglobin 30, Mean Corpuscular Hemoglobin Concent 32, Red Cell Distribution Width 17.2H, Platelet Count 246, Mean Platelet Volume 9.5, Immature Granulocyte % (Auto) 0, Neutrophils (%) (Auto) 64, Lymphocytes (%) (Auto) 25, Monocytes (%) (Auto) 8, Eosinophils (%) (Auto) 3, Basophils (%) (Auto) 1, Neutrophils # (Auto) 6.5, Lymphocytes # (Auto) 2.5, Monocytes # (Auto) 0.8, Eosinophils # (Auto) 0.3, Basophils # (Auto) 0.1, Immature Granulocyte # (Auto) 0.0, Sodium Level 137, Potassium Level 3.8, Chloride Level 99, Carbon Dioxide Level 26, Anion Gap 12, Blood Urea Nitrogen 25H, Creatinine 1.07, Estimat Glomerular Filtration Rate 78, BUN/Creatinine Rat io 23, Glucose Level 114H, Calcium Level 8.5, Corrected Calcium 9.5, Magnesium Level 1.8, Total Bilirubin 1.6H, Aspartate Amino Transf (AST/SGOT) 37H, Alanine Aminotransferase (ALT/SGPT) 58H, Alkaline Phosphatase 175H, Total Protein 5.6L, Albumin 2.8L, Digoxin Level 0.48L Microbiology 11/09/21 MRSA Screen - Final, Complete MRSA not isolated Assessment/Plan Assessment/Plan (1) Acute on chronic systolic (congestive) heart failure Status: Acute Assessment & Plan: 11/10: New onset CHF, approx 60# weight gain over the last 1.5 months, Cardiology consulted, appreciate recommendations, EF 35-40%, Continue with lasix, strict I/Os 11/11: Oxygen titrated, continue titration as tolerated (2) Atrial fibrillation with rapid ventricular response Status: Acute Assessment & Plan: 11/10: Cardiology consulted, continues in A fib with medication management, considering cardioversion (3) Acute kidney failure Status: Resolved Assessment & Plan: 11/10: Likely 2/2 aggressive diuresis, will continue to monitor Qualifiers: Qualified Codes: N17.9 - Acute kidney failure, unspecified (4) Volume overload Status: Acute Qualifiers: Qualified Codes: E87.79 - Other fluid overload (5) RHONDA (obstructive sleep apnea) Status: Chronic Assessment & Plan: 11/10: Non compliant (6) BMI 50.0-59.9, adult Status: Chronic (7) DVT prophylaxis Status: Acute Assessment & Plan: -DAMIAN Adkins MD Nov 11, 2021 11:13
--- NOTE | 2021-11-11 18:21 | OPERATIVE REPORT ---
DATE OF SERVICE: PREOPERATIVE DIAGNOSIS: Atrial flutter with rapid ventricular response. POSTOPERATIVE DIAGNOSIS: Sinus rhythm. PROCEDURE: External electrical cardioversion. DESCRIPTION OF PROCEDURE: Informed consent was obtained for transesophageal echocardiography and electrical cardioversion. Following transesophageal echocardiography, external electrical cardioversion was performed. 120 joules of synchronized biphasic shock was delivered through external patches. The atrial flutter converted to sinus rhythm. He tolerated the procedure well. Job ID: [id number] DocumentID: [id number] Dictated Date: 11/11/2021 09:17:37 Cage Shift Manager Date: 11/11/2021 18:19:53 Dictated By: ADONIS JAIMES MD, MA, FACP, FACC,
[2021-11-11] MEDS: diphenhydrAMINE 25 MG TAB (BENADRYL) PO PRN (20:23)
[2021-11-11] MEDS: MELATONIN 3 MG TABLET PO PRN (20:23)
[2021-11-12] VITALS (14 sets, daily range): BP systolic 102–150; BP diastolic 52–93
[2021-11-12] MEDS: ONDANSETRON 4 MG/2 ML (SDV) Z0FRAN IV PRN (04:33)
[2021-11-12 06:13] LABS: BASOPHILS # (AUTO) 0.1 10^3/uL (0.0-0.1); BASOPHILS % (AUTO) 1 % (0-10); EOSINOPHILS # (AUTO) 0.3 10^3/uL (0.0-0.3); EOSINOPHILS % (AUTO) 3 % (0-10); HEMATOCRIT 48 % (40-54); LYMPHOCYTES # (AUTO) 2.5 10^3/uL (1.0-4.0); LYMPHOCYTES % (AUTO) 25 % (12-44); MEAN CORPUSCULAR HEMOGLOBIN 30 pg (25-34); MEAN CORPUSCULAR HGB CONC 32 g/dL (32-36); MEAN CORPUSCULAR VOLUME 94 fL (80-99); MEAN PLATELET VOLUME 9.8 fL (9.0-12.2); MONOCYTES # (AUTO) 0.9 10^3/uL (0.0-1.0); MONOCYTES % (AUTO) 9 % (0-12); NEUTROPHILS # (AUTO) 6.1 10^3/uL (1.8-7.8); NEUTROPHILS % (AUTO) 62 % (42-75); PLATELET COUNT 248 10^3/uL (130-400); WHITE BLOOD COUNT 9.9 10^3/uL (4.3-11.0)
[2021-11-12 06:30] LABS: POTASSIUM 4.6 MMOL/L (3.6-5.0)
[2021-11-12 06:33] LABS: TOTAL PROTEIN 6.3 GM/DL (6.4-8.2)
[2021-11-12 06:35] LABS: BILIRUBIN,TOTAL 1.2 MG/DL (0.1-1.0)
[2021-11-12 06:36] LABS: CREATININE SERUM 1.05 MG/DL (0.60-1.30)
[2021-11-12 07:18] LABS: MAGNESIUM 1.6 MG/DL (1.6-2.4)
[2021-11-12] MEDS: DIGOXIN 0.25 MG (LANOXIN) TAB PO SCH (08:06)
[2021-11-12] MEDS: BENZONATATE 100 MG (TESSALON) CAPSULE PO SCH ×3 (08:06→21:30)
[2021-11-12] MEDS: FUROSEMIDE 40 MG/4 ML INJ (LASIX) IVP SCH (08:06)
[2021-11-12] MEDS: SACUBITRIL/VALSARTAN 24/26 MG (ENTRESTO) TABLET PO SCH ×2 (08:06→21:30)
[2021-11-12] MEDS: APIXABAN 5 MG (ELIQUIS) TABLET PO SCH ×2 (08:07→21:30)
[2021-11-12] MEDS: FAMOTIDINE 20 MG (PEPCID) TABLET PO SCH ×2 (08:07→21:30)
[2021-11-12] MEDS: SPIRONOLACTONE 25 MG (ALDACTONE) TAB PO SCH (08:07)
[2021-11-12] MEDS: EMPAGLIFLOZIN 10 MG TABLET (JARDIANCE) PO SCH (08:07)
[2021-11-12] MEDS: KCL 20 MEQ TAB (K-DUR) PO SCH ×2 (08:07→21:30)
[2021-11-12] MEDS: RT-ALBUTEROL/IPRATROPIUM 3 ML (DUONEB) VIAL INH SCH ×2 (08:21→20:55)
[2021-11-12] MEDS: DOCUSATE SODIUM 100 MG (COLACE) CAP PO SCH ×2 (09:00→21:29)
--- NOTE | 2021-11-12 09:51 | Progress Note - Cardiology ---
Cardiology SOAP Progress Note Subjective: Sitting up in chair at the bedside Maintaining SR States he is feeling better today Feels breathing is better Objective: I&O/Vital Signs 11/12/21 11/12/21 11/12/21 11/12/21 05:00 06:00 07:00 07:32 Pulse 78 71 78 73 Resp 32 28 B/P (MAP) 131/60 (84) 117/70 (99) 125/63 (83) Pulse Ox 92 91 95 O2 Delivery Nasal Cannula Nasal Cannula Nasal Cannula O2 Flow Rate 2.00 2.00 2.00 11/12/21 11/12/21 11/12/21 11/12/21 07:46 08:00 08:00 08:21 Temp 35.6 Pulse 83 Resp 20 B/P (MAP) 142/67 (92) Pulse Ox 94 O2 Delivery Nasal Cannula Nasal Cannula Nasal Cannula O2 Flow Rate 2.00 2.00 2.00 11/12/21 11/12/21 11/12/21 11/12/21 09:00 10:00 11:00 12:00 Temp 37.4 Pulse 85 98 78 Resp 15 17 15 B/P (MAP) 148/68 (94) 150/60 (90) Pulse Ox 93 87 91 O2 Delivery Nasal Cannula Nasal Cannula Nasal Cannula O2 Flow Rate 2.00 2.00 2.00 11/12/21 15:58 Temp 36.9 Pulse 67 Resp 20 B/P (MAP) 107/81 (90) Pulse Ox 97 O2 Delivery Nasal Cannula O2 Flow Rate 3.00 11/12/21 00:00 Intake Total 1875 ml Output Total 3400 ml Balance -1525 ml Constitutional: AAO x 3, well-developed, well-nourished Respiratory: No accessory muscle use; other (fair air entry, prolonged exp, coarse and fine crackles in the bases) Cardiovascular: regular rate-rhythm, systolic murmur (soft HAL at card base) Gastrointestional: No tender; soft, distended; No guarding, No rebound; audible bowel sounds Extremities: swelling (mild to mod, pitting edema of both legs); No clubbing, No cyanosis Neurologic/Psychiatric: other (moves all limbs) Skin: warm/dry; No rash on exposed areas, No ulcerations on exposed areas Results/Procedures: Labs Laboratory Tests 11/12/21 05:06: White Blood Count 9.9, Red Blood Count 5.06, Hemoglobin 15.0, Hematocrit 48, Mean Corpuscular Volume 94, Mean Corpuscular Hemoglobin 30, Mean Corpuscular Hemoglobin Concent 32, Red Cell Distribution Width 17.4H, Platelet Count 248, Mean Platelet Volume 9.8, Immature Granulocyte % (Auto) 0, Neutrophils (%) (Auto) 62, Lymphocytes (%) (Auto) 25, Monocytes (%) (Auto) 9, Eosinophils (%) (Auto) 3, Basophils (%) (Auto) 1, Neutrophils # (Auto) 6.1, Lymphocytes # (Auto) 2.5, Monocytes # (Auto) 0.9, Eosinophils # (Auto) 0.3, Basophils # (Auto) 0.1, Immature Granulocyte # (Auto) 0.0, Sodium Level 136, Potassium Level 4.6, Chloride Level 98, Carbon Dioxide Level 25, Anion Gap 13, Blood Urea Nitrogen 23H, Creatinine 1.05, Estimat Glomerular Filtration Rate 80, BUN/Creatinine Ratio 22, Glucose Level 86, Calcium Level 9.0, Corrected Calcium 9.8, Magnesium Level 1.6, Total Bilirubin 1.2H, Aspartate Amino Transf (AST/SGOT) 42H, Alanine Aminotransferase (ALT/SGPT) 48, Alkaline Phosphatase 162H, Total Protein 6.3L, Albumin 3.0L Microbiology 11/09/21 MRSA Screen - Final, Complete MRSA not isolated A/P: Assessment: Persistent atrial flutter with RVR - currently SR - 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 - successful elec CV (after JACKIE) to NSR on 11/11/21 - oral anticoag for stroke prophylaxis is being continued - continue long-acting Cardizem Ac on chronic systolic CHF - Echo 11/09/21: LVEF 35-40%, global hypokinesis of LV, mod enlargement of both atria, mild MR, mild to mod TR, grade 1 wan dysfunction of LV, PASP 40-45 mmHg RHONDA - non-compliance with therapy Obesity with obesity hypoventilation - BMI approx 51 Plan: * Continue diuretics * Replenish electrolytes * Monitor labs * Continue heart failure meds * Continue long-acting dilt for rate control * - stop IV Cardizem * Advised compliance with treatment of RHONDA * Dr. Aquino will be covering cardiology care HALLIE QUIÑONEZP Nov 12, 2021 09:51
--- NOTE | 2021-11-12 10:28 | Progress Note ---
Subjective Subjective/Events-last exam Patient much improved. Sitting up in chair this AM. Still short of breath with any activity Review of Systems Pulmonary: Dyspnea; No Cough Cardiovascular: Edema; No: Chest Pain, Palpitations Gastrointestinal: No: Nausea, Vomiting, Abdominal Pain, Diarrhea, Constipation Neurological: Weakness, Incoordination Objective Exam Last Set of Vital Signs Vital Signs Date Time Temp Pulse Resp B/P (MAP) Pulse Ox O2 Delivery O2 Flow Rate FiO2 11/12/21 09:00 85 15 93 Nasal Cannula 2.00 11/12/21 08:00 35.6 11/12/21 01:33 28 Capillary Refill : Less Than 3 Seconds I&O Intake and Output 11/12/21 00:00 Intake Total 2350 ml Output Total 5525 ml Balance -3175 ml Intake Oral 1975 ml IV Total 375 ml Output Urine Total 5525 ml # Voids 1 General: Alert, Oriented X3, Mild Distress (with any activity) Lungs: Clear to Auscultation, Normal Air Movement Heart: Regular Rate, No Murmurs Abdomen: Normal Bowel Sounds, Soft, No Tenderness, No Masses Extremities: No Edema Neuro: Normal Speech Results/Procedures Lab Laboratory Tests 11/11/21 16:00: Potassium Level 4.3 11/12/21 05:06: Potassium Level 4.6, White Blood Count 9.9, Red Blood Count 5.06, Hemoglobin 15.0, Hematocrit 48, Mean Corpuscular Volume 94, Mean Corpuscular Hemoglobin 30, Mean Corpuscular Hemoglobin Concent 32, Red Cell Distribution Width 17.4H, Platelet Count 248, Mean Platelet Volume 9.8, Immature Granulocyte % (Auto) 0, Neutrophils (%) (Auto) 62, Lymphocytes (%) (Auto) 25, Monocytes (%) (Auto) 9, Eosinophils (%) (Auto) 3, Basophils (%) (Auto) 1, Neutrophils # (Auto) 6.1, Lymphocytes # (Auto) 2.5, Monocytes # (Auto) 0.9, Eosinophils # (Auto) 0.3, Basophils # (Auto) 0.1, Immature Granulocyte # (Auto) 0.0, Sodium Level 136, Chloride Level 98, Carbon Dioxide Level 25, Anion Gap 13, Blood Urea Nitrogen 23H, Creatinine 1.05, Estimat Glomerular Filtration Rate 80, BUN/Creatinine Ratio 22, Glucose Level 86, Calcium Level 9.0, Corrected Calcium 9.8, Magnesium Level 1.6, Total Bilirubin 1.2H, Aspartate Amino Transf (AST/SGOT) 42H, Alanine Aminotransferase (ALT/SGPT) 48, Alkaline Phosphatase 162H, Total Protein 6.3L, Albumin 3.0L Microbiology 11/09/21 MRSA Screen - Final, Complete MRSA not isolated Assessment/Plan Assessment/Plan (1) Acute on chronic systolic (congestive) heart failure Status: Acute Assessment & Plan: 11/10: New onset CHF, approx 60# weight gain over the last 1.5 months, Cardiology consulted, appreciate recommendations, EF 35-40%, Yue nue with lasix, strict I/Os 11/11: Oxygen titrated, continue titration as tolerated 11/12: On NC, transfer to floor today, possible d/c tomorrow, down 9 kg since diuresis, PT ordered today (2) Atrial fibrillation with rapid ventricular response Status: Acute Assessment & Plan: 11/10: Cardiology consulted, continues in A fib with medication management, considering cardioversion (3) Acute kidney failure Status: Resolved Assessment & Plan: 11/10: Likely 2/2 aggressive diuresis, will continue to monitor 11/12 Improving with diuresis Qualifiers: Qualified Codes: N17.9 - Acute kidney failure, unspecified (4) Volume overload Status: Acute Qualifiers: Qualified Codes: E87.79 - Other fluid overload (5) RHONDA (obstructive sleep apnea) Status: Chronic Assessment & Plan: 11/10: Non compliant (6) BMI 50.0-59.9, adult Status: Chronic (7) DVT prophylaxis Status: Acute Assessment & Plan: -DAMIAN Adkins MD Nov 12, 2021 10:28
--- NOTE | 2021-11-12 10:56 | Anesthesia-General Post-Op ---
MAC Patient Condition Mental Status/LOC: Same as Preop Cardiovascular: Satisfactory Nausea/Vomiting: Absent Respiratory: Satisfactory Pain: Controlled Complications: Absent Post Op Complications Complications None Follow Up Care/Instructions Patient Instructions None needed. Anesthesiology Discharge Order Discharge Order Patient is doing well, no complaints, stable vital signs, no apparent adverse anesthesia problems. No complications reported per nursing. NELI ROTH CRNA Nov 12, 2021 10:56
--- NOTE | 2021-11-12 11:00 | Tele-ICU Progress Note ---
Subjective Date Seen by a Provider: Nov 12, 2021 Time Seen by a Provider: 10:59 Subjective/Events-last exam (Tele-ICU Physician , Progress Note ) Available chart/ vitals / labs / Images reviewed Video assessment done using teleICU camera, rest of exam as per RN Discussed with RN , EXAM PER RN Events overnight : Afebrile FiO2 - 2L I/O = Drips: Pressors: , hemodynamically stable Consultants: A/P Acute / on chronic CHF of undetermined etiology -ECHO 11/09 - EF 35% grI dst dsfnc - on 2 L now - IS , diuresis Afib/RVR 11/11 - s/p cardioversion - sinus - card gtt to be stopped as per cards - on ELIQUIS COPD - cont br-dilat RHONDA -noncompliant with CPAP -RVSP on ECHO 40 mm gh Obesity - BMI approx 51 Lines : (Central Line Necessity Reviewed) [place]: OG: Nutrition: Analgesia: Anxiety/ delirium VTE Prophylaxis: Stress Ulcer Prophylaxis: Plans in collaboration with bedside consultants and IM MDs. Discussed with RN to reach out if any questions or concerns A total of 15 minutes of critical care time was devoted to this patient today, required to treat and/or prevent further deterioration of critical care condition ( as above) . Sepsis Event Evaluation Height, Weight, BMI Height: '" Weight: lbs. oz. kg; 54.08 BMI Method: Exam Exam Patient acknowledged, consented, and participated in this virtual visit which was conducted using real time audio/video Vital Signs Date Time Temp Pulse Resp B/P (MAP) Pulse Ox O2 Delivery O2 Flow Rate FiO2 11/12/21 10:00 98 17 148/68 (94) 87 Nasal Cannula 2.00 11/12/21 09:00 85 15 93 Nasal Cannula 2.00 11/12/21 08:21 94 Nasal Cannula 2.00 11/12/21 08:00 35.6 11/12/21 08:00 83 20 142/67 (92) Nasal Cannula 2.00 11/12/21 07:46 Nasal Cannula 2.00 11/12/21 07:32 73 11/12/21 07:00 78 125/63 (83) 95 Nasal Cannula 2.00 11/12/21 06:00 71 28 117/70 (99) 91 Nasal Cannula 2.00 11/12/21 05:00 78 32 131/60 (84) 92 Nasal Cannula 2.00 11/12/21 04:00 Nasal Cannula 2.00 11/12/21 04:00 36.7 71 13 114/53 (73) 94 Nasal Cannula 2.00 11/12/21 04:00 76 15 126/61 (88) 94 Nasal Cannula 2.00 11/12/21 03:00 78 12 131/93 (102) 96 Nasal Cannula 2.00 11/12/21 02:00 71 13 114/53 (72) 94 Nasal Cannula 2.00 11/12/21 01:33 36.2 72 94 28 11/12/21 01:00 68 12 114/66 (78) 94 Nasal Cannula 2.00 11/12/21 01:00 68 11/12/21 00:00 70 11 114/52 (69) 95 Nasal Cannula 2.00 11/12/21 00:00 36.2 11/11/21 23:03 Nasal Cannula 2.00 11/11/21 23:00 70 12 115/63 (78) 95 Nasal Cannula 2.00 11/11/21 22:00 73 12 112/56 (81) 96 Nasal Cannula 2.00 11/11/21 21:00 87 22 121/67 (81) Nasal Cannula 2.00 11/11/21 20:00 Nasal Cannula 2.00 11/11/21 20:00 81 14 126/65 (88) 95 Nasal Cannula 2.00 11/11/21 19:55 36.1 11/11/21 19:37 94 Nasal Cannula 2.00 11/11/21 19:00 84 11/11/21 19:00 84 38 134/78 (87) 97 Nasal Cannula 2.00 11/11/21 18:00 73 14 120/76 (91) 95 Nasal Cannula 2.00 11/11/21 17:00 79 26 97/59 (72) 97 Nasal Cannula 2.00 11/11/21 16:07 37.0 11/11/21 16:00 Nasal Cannula 2.00 11/11/21 16:00 73 25 129/76 (93) 96 Nasal Cannula 2.00 11/11/21 15:00 68 130/67 (88) 92 Nasal Cannula 2.00 11/11/21 14:46 94 Nasal Cannula 3.00 11/11/21 14:00 75 125/56 (79) 92 Nasal Cannula 2.00 11/11/21 13:00 79 117/58 (77) 95 Nasal Cannula 2.00 11/11/21 12:45 82 11/11/21 12:03 37.4 11/11/21 12:00 97 Nasal Cannula 2.00 11/11/21 12:00 85 35 172/62 (98) 91 Nasal Cannula 2.00 11/11/21 11:00 86 36 125/62 (83) 94 Nasal Cannula 2.00 I & O 11/12/21 07:00 Intake Total 2475 ml Output Total 5800 ml Balance -3325 ml Height & Weight Height: '" Weight: lbs. oz. kg; 54.08 BMI Method: General Appearance: Anxious, Chronically ill, Mild Distress, Obese HEENT: PERRL/EOMI, Normal ENT Inspection, Pharynx Normal, Moist Mucous Membranes Neck: Full Range of Motion, Normal Inspection, Non Tender Respiratory: Chest Non Tender, No Accessory Muscle Use, No Respiratory Distress, Decreased Breath Sounds, Wheezing Cardiovascular: No Edema, No Gallop, No JVD, No Murmur, Normal Peripheral Pulses, Tachycardia Capillary Refill: Less Than 3 Seconds Extremity: Normal Capillary Refill, Normal Inspection, Normal Range of Motion, Non Tender, No Calf Tenderness, No Pedal Edema Neurologic/Psychiatric: Alert, Oriented x3, No Motor/Sensory Deficits, Normal Mood/Affect Skin: Normal Color, Warm/Dry Lymphatic: No Adenopathy Results Lab Laboratory Tests 11/11/21 04:55 11/11/21 16:00 11/12/21 05:06 Assessment/Plan Assessment/Plan 1 TORSTEN LEACH MD Nov 12, 2021 11:00
--- NOTE | 2021-11-12 16:13 | Progress Note - Cardiology ---
Cardiology SOAP Progress Note Subjective: No cp or palp or syncope or shortness of breath Gen weakness and malaise present - improving No n/v/d Objective: I&O/Vital Signs 11/12/21 11/12/21 11/12/21 11/12/21 05:00 06:00 07:00 07:32 Pulse 78 71 78 73 Resp 32 28 B/P (MAP) 131/60 (84) 117/70 (99) 125/63 (83) Pulse Ox 92 91 95 O2 Delivery Nasal Cannula Nasal Cannula Nasal Cannula O2 Flow Rate 2.00 2.00 2.00 11/12/21 11/12/21 11/12/21 11/12/21 07:46 08:00 08:00 08:21 Temp 35.6 Pulse 83 Resp 20 B/P (MAP) 142/67 (92) Pulse Ox 94 O2 Delivery Nasal Cannula Nasal Cannula Nasal Cannula O2 Flow Rate 2.00 2.00 2.00 11/12/21 11/12/21 11/12/21 11/12/21 09:00 10:00 11:00 12:00 Temp 37.4 Pulse 85 98 78 Resp 15 17 15 B/P (MAP) 148/68 (94) 150/60 (90) Pulse Ox 93 87 91 O2 Delivery Nasal Cannula Nasal Cannula Nasal Cannula O2 Flow Rate 2.00 2.00 2.00 11/12/21 15:58 Temp 36.9 Pulse 67 Resp 20 B/P (MAP) 107/81 (90) Pulse Ox 97 O2 Delivery Nasal Cannula O2 Flow Rate 3.00 11/12/21 00:00 Intake Total 1875 ml Output Total 3400 ml Balance -1525 ml Constitutional: AAO x 3, well-developed, well-nourished Respiratory: No accessory muscle use; other (fair air entry, prolonged exp, coarse and fine crackles in the bases) Cardiovascular: regular rate-rhythm, systolic murmur (soft HAL at card base) Gastrointestional: No tender; soft, distended; No guarding, No rebound; audible bowel sounds Extremities: swelling (mild to mod, pitting edema of both legs); No clubbing, No cyanosis Neurologic/Psychiatric: other (moves all limbs) Skin: warm/dry; No rash on exposed areas, No ulcerations on exposed areas Results/Procedures: Labs Laboratory Tests 11/12/21 05:06: White Blood Count 9.9, Red Blood Count 5.06, Hemoglobin 15.0, Hematocrit 48, Mean Corpuscular Volume 94, Mean Corpuscular Hemoglobin 30, Mean Corpuscular Hemoglobin Concent 32, Red Cell Distribution Width 17.4H, Platelet Count 248, Mean Platelet Volume 9.8, Immature Granulocyte % (Auto) 0, Neutrophils (%) (Auto) 62, Lymphocytes (%) (Auto) 25, Monocytes (%) (Auto) 9, Eosinophils (%) (Auto) 3, Basophils (%) (Auto) 1, Neutrophils # (Auto) 6.1, Lymphocytes # (Auto) 2.5, Monocytes # (Auto) 0.9, Eosinophils # (Auto) 0.3, Basophils # (Auto) 0.1, Immature Granulocyte # (Auto) 0.0, Sodium Level 136, Potassium Level 4.6, Chloride Level 98, Carbon Dioxide Level 25, Anion Gap 13, Blood Urea Nitrogen 23H, Creatinine 1.05, Estimat Glomerular Filtration Rate 80, BUN/Creatinine Ratio 22, Glucose Level 86, Calcium Level 9.0, Corrected Calcium 9.8, Magnesium Level 1.6, Total Bilirubin 1.2H, Aspartate Amino Transf (AST/SGOT) 42H, Alanine Aminotransferase (ALT/SGPT) 48, Alkaline Phosphatase 162H, Total Protein 6.3L, Albumin 3.0L Microbiology 11/09/21 MRSA Screen - Final, Complete MRSA not isolated Laboratory Tests 11/11/21 04:55 11/11/21 16:00 11/12/21 05:06 A/P: Assessment: Persistent atrial flutter with RVR - currently SR - 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 - successful elec CV (after JACKIE) to NSR on 11/11/21 - oral anticoag for stroke prophylaxis is being continued - continue long-acting Cardizem Ac on chronic systolic CHF - Echo 11/09/21: LVEF 35-40%, global hypokinesis of LV, mod enlargement of both atria, mild MR, mild to mod TR, grade 1 wan dysfunction of LV, PASP 40-45 mmHg RHONDA - non-compliance with therapy Obesity with obesity hypoventilation - BMI approx 51 Plan: * Continue diuretics * Replenish electrolytes * Monitor labs * Continue heart failure meds * Continue long-acting dilt for rate control * stop IV Cardizem * Advised compliance with treatment of RHONDA * Dr. Aquino will be covering Cardiology ADONIS JAIMES MD FACP FAC CCDS Nov 12, 2021 16:13
[2021-11-12] MEDS ORDERED: APIX5TAB PO (16:20)
[2021-11-12] MEDS ORDERED: DIGO250T15 PO (16:20)
[2021-11-12] MEDS ORDERED: SPIR25TA5 PO (16:20)
[2021-11-12] MEDS ORDERED: SACU1TAB2 PO (16:20)
[2021-11-12] MEDS ORDERED: POTA-169 PO (16:20)
[2021-11-12] MEDS ORDERED: DILT300C52 PO (16:20)
[2021-11-12] MEDS: ACETAMINOPHEN 325 MG TABLET PO PRN (23:53)
[2021-11-13] VITALS: BP 129/71
[2021-11-13 04:00] VITALS: BP 129/68
[2021-11-13] MEDS: RT-ALBUTEROL/IPRATROPIUM 3 ML (DUONEB) VIAL INH SCH (06:47)
[2021-11-13 07:22] VITALS: BP 108/71
[2021-11-13] MEDS: SPIRONOLACTONE 25 MG (ALDACTONE) TAB PO SCH (07:46)
[2021-11-13] MEDS: KCL 20 MEQ TAB (K-DUR) PO SCH (07:46)
[2021-11-13] MEDS: FUROSEMIDE 40 MG/4 ML INJ (LASIX) IVP SCH (07:46)
[2021-11-13] MEDS: EMPAGLIFLOZIN 10 MG TABLET (JARDIANCE) PO SCH (07:46)
[2021-11-13] MEDS: BENZONATATE 100 MG (TESSALON) CAPSULE PO SCH (07:46)
[2021-11-13] MEDS: DIGOXIN 0.25 MG (LANOXIN) TAB PO SCH (07:46)
[2021-11-13] MEDS: ACETAMINOPHEN 325 MG TABLET PO PRN (07:47)
[2021-11-13] MEDS: FAMOTIDINE 20 MG (PEPCID) TABLET PO SCH (07:47)
[2021-11-13] MEDS: SACUBITRIL/VALSARTAN 24/26 MG (ENTRESTO) TABLET PO SCH (07:47)
[2021-11-13] MEDS: DOCUSATE SODIUM 100 MG (COLACE) CAP PO SCH (07:47)
[2021-11-13] MEDS: APIXABAN 5 MG (ELIQUIS) TABLET PO SCH (07:47)
[2021-11-13 07:53] LABS: BASOPHILS # (AUTO) 0.1 10^3/uL (0.0-0.1); BASOPHILS % (AUTO) 1 % (0-10); EOSINOPHILS # (AUTO) 0.3 10^3/uL (0.0-0.3); EOSINOPHILS % (AUTO) 4 % (0-10); HEMATOCRIT 45 % (40-54); HEMOGLOBIN 14.5 g/dL (13.3-17.7); LYMPHOCYTES % (AUTO) 24 % (12-44); MEAN CORPUSCULAR HEMOGLOBIN 30 pg (25-34); MEAN CORPUSCULAR HGB CONC 33 g/dL (32-36); MEAN CORPUSCULAR VOLUME 92 fL (80-99); MEAN PLATELET VOLUME 9.6 fL (9.0-12.2); MONOCYTES # (AUTO) 0.8 10^3/uL (0.0-1.0); MONOCYTES % (AUTO) 9 % (0-12); NEUTROPHILS # (AUTO) 5.1 10^3/uL (1.8-7.8); NEUTROPHILS % (AUTO) 62 % (42-75); PLATELET COUNT 264 10^3/uL (130-400); WHITE BLOOD COUNT 8.3 10^3/uL (4.3-11.0)
[2021-11-13 08:12] LABS: BILIRUBIN,TOTAL 1.5 MG/DL (0.1-1.0); CALCIUM 8.9 MG/DL (8.5-10.1); CREATININE SERUM 0.92 MG/DL (0.60-1.30); MAGNESIUM 1.5 MG/DL (1.6-2.4); POTASSIUM 4.4 MMOL/L (3.6-5.0); TOTAL PROTEIN 6.2 GM/DL (6.4-8.2)
--- NOTE | 2021-11-13 11:33 | Physical Therapy Progress Note ---
Therapy Progress Note Patient dismissing to home on this date. No PT per physician. ELIZABETH CONNELLY PT Nov 13, 2021 11:33
--- NOTE | 2021-11-13 12:50 | Discharge Summary ---
Discharge Summary Reconcile Patient Problems Problems Reviewed?: Yes Instructions for Patient Assessment/Instructions A/C systolic CHF Atrial fibrillation with RVR Volume overload RHONDA untreated Noctural hypoxia Physician to follow Patient: LIAM Discharge Diet for Home: Cardiac Diet Hospital Course Date of Admission: Nov 08, 2021 at 21:47 Admission Diagnosis : Family Physician/Provider: Colin Greer MD Date of Discharge: 11/13/21 Discharge Diagnosis: Acute on chronic systolic CHF Atrial Fibrillation with RVR Volume Overload RHONDA Noctural hypoxia BMI 50 Hospital Course: 61 yo M that presented with increasing shortness of breath that was found to have acute on chronic CHF. Patient was seen by cardiology and started on aggressive diuresis and tolerated titration of oxygen. Patient has severe RHONDA an d has not had CPAP, he is suppose to be using CPAP with oxygen. During this admission patient was hypoxic at night and required oxygen but was able to be titrated to RA while awake. Will need home sleep study. Labs and Pending Lab Test: Laboratory Tests 11/13/21 07:39: White Blood Count 8.3, Red Blood Count 4.84, Hemoglobin 14.5, Hematocrit 45, M darío Corpuscular Volume 92, Mean Corpuscular Hemoglobin 30, Mean Corpuscular Hemoglobin Concent 33, Red Cell Distribution Width 17.1H, Platelet Count 264, Mean Platelet Volume 9.6, Immature Granulocyte % (Auto) 0, Neutrophils (%) (Auto) 62, Lymphocytes (%) (Auto) 24, Monocytes (%) (Auto) 9, Eosinophils (%) (Auto) 4, Basophils (%) (Auto) 1, Neutrophils # (Auto) 5.1, Lymphocytes # (Auto) 2.0, Monocytes # (Auto) 0.8, Eosinophils # (Auto) 0.3, Basophils # (Auto) 0.1, Immature Granulocyte # (Auto) 0.0, Sodium Level 136, Potassium Level 4.4, Chloride Level 96L, Carbon Dioxide Level 28, Anion Gap 12, Blood Urea Nitrogen 20H, Creatinine 0.92, Estimat Glomerular Filtration Rate 93, BUN/Creatinine Ratio 22, Glucose Level 115H, Calcium Level 8.9, Corrected Calcium 9.7, Magnesium Level 1.5L, Total Bilirubin 1.5H, Aspartate Amino Transf (AST/SGOT) 36H, Alanine Aminotransferase (ALT/SGPT) 47, Alkaline Phosphatase 160H, Total Protein 6.2L, Albumin 3.0L Microbiology 7/17/22 MRSA Screen - Final, Complete MRSA not isolated Home Meds Active Klor-Con M20 (Potassium Chloride) 20 Meq Tab.er.prt 20 Meq PO BID Spironolactone 25 Mg Tablet 25 Mg PO DAILY Entresto 24 mg-26 mg Tablet (Sacubitril/Valsartan) 24 Mg-26 Mg Tablet 1 Tab PO BID Diltiazem 24Hr ER (Diltiazem HCl) 300 Mg Cap.er.24h 300 Mg PO DAILY Digox (Digoxin) 250 Mcg (0.25 Mg) Tablet 0.25 Mg PO DAILY Eliquis (Apixaban) 5 Mg Tablet 5 Mg PO BID Reported Vitamin C (Ascorbate Calcium) 500 Mg Tablet 500 Mg PO DAILY Vitamin B-12 (Cyanocobalamin (Vitamin B-12)) 500 Mcg Tablet 500 Mcg PO DAILY Vmissjm-Gzulyecqp-Paim Tablet (Calcium Carbonate/Mag Oxide/Zn) 333 Mg-133 Mg-5 Mg Tablet 3 Each PO DAILY Aspirin EC (Aspirin) 81 Mg Tablet.dr 81 Mg PO DAILY Albuterol Sulfate 2.5 Mg/0.5 Ml Vial.neb 2.5 Mg INH Q6H PRN Hydrochlorothiazide 25 Mg Tablet 25 Mg PO DAILY PRN Furosemide 80 Mg Tablet 80 Mg PO DAILY Potassium Chloride 20 Meq Tablet.er 20 Meq PO DAILY Allopurinol 300 Mg Tablet 600 Mg PO HS TAKES 2 (300MG) TABS Baclofen 10 Mg Tablet 10 Mg PO Q8H PRN Losartan Potassium 100 Mg Tablet 100 Mg PO DAILY Proair Hfa (Albuterol Sulfate) 1 Puff Puff 2 Puff IH Q4H PRN Metoprolol Tartrate 50 Mg Tablet 50 Mg PO DAILY Hydrocodone-Acetamin 5-325 mg (Hydrocodone/Acetaminophen) 5 Mg-325 Mg Tablet 1-2 Ea PO TID PRN Patient Allergies: Coded Allergies: No Known Drug Allergies (Unverified , 08/19/21) New Medications: Apixaban (Eliquis) 5 Mg Tablet 5 MG PO BID, #60 TAB 5 Refills Digoxin (Digox) 250 Mcg (0.25 Mg) Tablet 0.25 MG PO DAILY, #30 TAB 5 Refills Diltiazem HCl (Diltiazem 24Hr ER) 300 Mg Cap.er.24h 300 MG PO DAILY, #30 CAP 6 Refills Potassium Chloride (Klor-Con M20) 20 Meq Tab.er.prt 20 MEQ PO BID, #60 TAB 5 Refills Sacubitril/Valsartan (Entresto 24 mg-26 mg Tablet) 24 Mg-26 Mg Tablet 1 TAB PO BID, #60 TAB 5 Refills Spironolactone (Spironolactone) 25 Mg Tablet 25 MG PO DAILY, #30 TAB 5 Refills Continued Medications: Albuterol Sulfate (Proair Hfa) 1 Puff Puff 2 PUFF IH Q4H PRN for SHORTNESS OF BREATH, EA Albuterol Sulfate (Albuterol Sulfate) 2.5 Mg/0.5 Ml Vial.neb 2.5 MG INH Q6H PRN for SHORTNESS OF BREATH, EACH Allopurinol (Allopurinol) 300 Mg Tablet 600 MG PO HS, TAB TAKES 2 (300MG) TABS Ascorbate Calcium (Vitamin C) 500 Mg Tablet 500 MG PO DAILY, TAB Aspirin (Aspirin EC) 81 Mg Tablet.dr 81 MG PO DAILY, TAB Baclofen (Baclofen) 10 Mg Tablet 10 MG PO Q8H PRN for MUSCLE CRAMPS, TAB Calcium Carbonate/Mag Oxide/Zn (Rulaoky-Hesfbgsiq-Uhrc Tablet) 333 Mg-133 Mg-5 Mg Tablet 3 EACH PO DAILY, TAB Cyanocobalamin (Vitamin B-12) (Vitamin B-12) 500 Mcg Tablet 500 MCG PO DAILY, TAB Furosemide (Furosemide) 80 Mg Tablet 80 MG PO DAILY, TAB Hydrocodone/Acetaminophen (Hydrocodone-Acetamin 5-325 mg) 5 Mg-325 Mg Tablet 1-2 EA PO TID PRN for PAIN-MODERATE (5-7), TAB Discontinued Medications: Hydrochlorothiazide (Hydrochlorothiazide) 25 Mg Tablet 25 MG PO DAILY PRN for FLUID RETENTION, TAB Losartan Potassium (Losartan Potassium) 100 Mg Tablet 100 MG PO DAILY, TAB Metoprolol Tartrate (Metoprolol Tartrate) 50 Mg Tablet 50 MG PO DAILY, TAB Potassium Chloride (Potassium Chloride) 20 Meq Tablet.er 20 MEQ PO DAILY, TAB Home Health Need/Face to Face Date of Face to Face: Nov 13, 2021 Clinical Findings: Generalized weakness and fatigue, Shortness of breath, Unsteady gait I have seen Pt [id number]: Yes Discharged To: Home Diagnosis/Conditions: See above Patient is Homebound due to: Ally fall risk due to instabilty, Shortness of breath/distress Homebound Status Due to the above stated illness, injury or surgical procedure (medical condition or diagnosis) and associated clinical findings, the patient is homebound because of his/her inability to leave home except with aid of a supportive device and/or person AND leaving the home requires a considerable and taxing effort or is medically contraindicated. Pt req the following assistanc: Aid of another person, Walker Home Health Nursing Orders Home Health Services Order: Nursing Services, Physical Therapy-Evaluate & Treat Home Health Infusion Therapy Line Start Date: Nov 08, 2021 Therapy Orders Therapy Specific Orders: Gait training, Increase strength/endurance Certify Stmt I certify that this patient is under my care and that I, a nurse practitioner or a physician; a recovery assistant working with me, had a face to face encounter that - meets the physician face to face encounter requirements with this patient as dated. Discharge Physical Exam General: Alert, Oriented X3, Cooperative, Mild Distress Lungs: Clear to Auscultation, Normal Air Movement Heart: Regular Rate, No Murmurs Abdomen: Normal Bowel Sounds, Soft, No Tenderness, No Masses Extremities: Other (2+ pitting edema) Neuro: Normal Speech Psych/Mental Status: Mental Status NL, Mood NL DAMIAN MCDONALD MD Nov 13, 2021 12:34
--- NOTE | 2021-11-13 14:00 | Occ Therapy Progress Note ---
Therapy Progress Note OT visited with pt who indicates he is discharging home today. Pt declined OT services at this time. D/C from OT services. 1, visit SANTY CARUSO OT Nov 13, 2021 14:00
== END 2021-11-13 14:06 | disposition home health service (06) | DRG 291 ==
LOC: EDUNIT# 17:14 → ER FS 17:15 → CSD 21:47 → ICU 11-09 13:59 → 4TH 11-12 12:34
PROVIDERS: ADMIT Internal Medicine; ATTEND Family Medicine
PROC: 5A2204Z Restoration of Cardiac Rhythm, Single (ICD-10-PCS; principal; 2021-11-11)
DX: I11.0 Hypertensive heart disease with heart failure (principal); I50.23 Acute on chronic systolic (congestive) heart failure; N17.9 Acute kidney failure, unspecified; I48.19 Other persistent atrial fibrillation; E66.2 Morbid (severe) obesity with alveolar hypoventilation; Z68.43 Body mass index [BMI] 50.0-59.9, adult; I42.9 Cardiomyopathy, unspecified; I08.1 Rheumatic disorders of both mitral and tricuspid valves; J44.9 Chronic obstructive pulmonary disease, unspecified; E87.8 Other disorders of electrolyte and fluid balance, not elsewhere classified; H54.7 Unspecified visual loss; Z91.19 Patient's noncompliance with other medical treatment and regimen
CPT/HCPCS: 36415; 71046; 74177; 80053; 80162; 83735; 83880; 84132; 84484; 85025; 85610; 85730; 87081; 93005; 93041; 93306; 93312; 93320; 93325; 94640; 94760; 96374

== ENCOUNTER → 2022-04-02 | Outpatient (CLI) | payer MEDICARE ==
[~2022-04-02] MED LIST changes: +ACHD5005 PO; +ALB0.5V INH; +ALBU8.5H6 IH; +ALLO300T2 PO; +APIX5TAB PO; +ASCO-262 PO; +ASPI-1238 PO; +BACL10TA PO; +CALC-687 PO; +CYAN500T8 PO; +DIGO250T15 PO; +DILT300C52 PO; +FURO80TA3 PO; +HYDR25TA4 PO; +LOSA100T57 PO; +METO50TA15 PO; +POTA-169 PO; +POTA-51 PO; -RT-ALBUTEROL/IPRATROPIUM 3 ML (DUONEB) VIAL INH PRN; +SACU1TAB2 PO; +SPIR25TA5 PO
--- NOTE | 2022-04-02 18:16 | Diagnostic Imaging Report ---
INDICATION: Left foot pain, ulceration. AP, oblique, and lateral views of the left foot are obtained. There is a prominent hallux valgus deformity. There is diffuse degenerative change. There is no erosive bony lesion. Soft tissue gas is noted in the plantar soft tissues without underlying erosive bony lesion. IMPRESSION: Diffuse degenerative changes with prominent hallux valgus deformity. Soft tissue gas is noted in the plantar soft tissues, without evidence of underlying bony erosion. Dictated by: Dictated on workstation # [id number]
== END ==
LOC: RAD FS 16:53
PROVIDERS: ATTEND Family Medicine
DX: M19.072 Primary osteoarthritis, left ankle and foot (principal)
CPT/HCPCS: 73630